=== PATIENT | male | born 1955 | race Caucasian/White ===

== ENCOUNTER → 2017-02-17 | Outpatient (CLI) | payer OTHER ==
--- NOTE | 2017-02-17 10:27 | CTL ---
EXAMINATION TYPE: CT Low Dose Lung DATE OF EXAM ORDERED: 02/17/2017 HISTORY: . Lung cancer screening CT DLP: 136.[address] CTDI: 3.5 mGy Automated exposure control for dose reduction was used. SCREENING VISIT: Initial COMPARISON: None TECHNIQUE: Low dose computed tomography scan was performed through the chest at 1 mm thick sections a nd reconstructed images in the coronal plane at [address] DIAGNOSTIC QUALITY: Satisfactory FINDINGS: LUNG NODULES: None. LUNGS: COPD: Severity: None Fibrosis: Severity: None Lymph nodes: No enlarged mediastinal or hilar adenopathy. Other findings: None RIGHT PLEURAL SPACE: Effusion: None Calcification: None Thickening: None Pneumothorax: None LEFT PLEURAL SPACE: Effusion: None Calcification: None Thickening: None Pneumothorax: None HEART: Heart Size: Normal Coronary calcification: Mild to moderate Pericardial effusion: None OTHER FINDINGS: Upper abdomen: Normal Bony thorax: Unremarkable Supraclavicular region: Normal Other: Ascending thoracic aorta at the level of the main pulmonary artery is 3.7 cm. The main pulmona ry artery the bifurcation is 3.0 cm. IMPRESSION: 1. Normal screening CT chest FOLLOW UP CT CHEST RECOMMENDATION: Follow-up per screening protocol CT LUNG RAD: Lung-Rad 1 Negative
== END | disposition home or self-care (01) ==
LOC: RADCTMAIN 08:29
PROVIDERS: ATTEND Internal Medicine
DX: Z12.2 Encounter for screening for malignant neoplasm of respiratory organs (principal); Z87.891 Personal history of nicotine dependence

== ENCOUNTER 2017-09-25 10:04 | Emergency (ER) | payer OTHER ==
[~2017-09-25 10:04] MED LIST: RABIES IMMUNE GLOB 150 UNIT/ML 10 ML VIAL IM ONE; RABIES IMMUNE GLOB 150UNIT/ML 2 ML VIAL IM ONE
[2017-09-25 10:07] VITALS: RESP 20
[2017-09-25] MEDS ORDERED: DIPH,PERTUS(ACELL)TETVAC-LF 0.5 ML VIAL IM ONE (10:42)
[2017-09-25] MEDS ORDERED: RABIES IMMUNE GLOB 150 UNIT/ML 10 ML VIAL IM ONE (10:43)
[2017-09-25] MEDS ORDERED: RABIES VACCINE (PCEC) 2.5 UNIT KIT IM ONE (10:43)
--- NOTE | 2017-09-25 10:51 | ED ---
General Adult HPI - General Chief complaint: Animal Bite Stated complaint: bite on finger Time Seen by Provider: 09/25/17 10:32 Source: patient, RN notes reviewed Mode of arrival: ambulatory Limitations: no limitations - History of Present Illness Initial comments: Patient's a 62-year-old male presented to the emergency room today with a chief complaint encounter with about this morning. Patient states he woke up this morning was about his house. He states he was able to get the back and remove it. Patient does admit there is a superficial scraping to the second MCP joint area of the right hand. He states is unsure how this happened. States concern that it could be a possible bat bite. Patient does admit that his tetanus is not up-to-date. He denies any other complaints or symptoms. Patient denies any recent fever, chills, shortness of breath, chest pain, back pain, abdominal pain , nausea or vomiting, numbness or tingling, headaches or visual changes, or any other complaints. - Related Data Allergies Allergy/AdvReac Type Severity Reaction Status Date / Time acetaminophen [From Lortab] Allergy Unknown Verified 09/25/17 10:07 hydrocodone [From Lortab] Allergy Unknown Verified 09/25/17 10:07 Review of Systems ROS Statement: Those systems with pertinent positive or pertinent negative responses have been documented in the HPI. ROS Other: All systems not noted in ROS Statement are negative. Past Medical History Past Medical History: Hyperlipidemia, Thyroid Disorder History of Any Multi-Drug Resistant Organisms: None Reported Past Surgical History: Cholecystectomy Past Psychological History: No Psychological Hx Reported Smoking Status: Current every day smoker Past Alcohol Use History: None Reported Past Drug Use History: None Reported General Exam - General Exam Comments Initial Comments: General: The patient is awake and alert, in no distress, and does not appear acutely ill. Neck: The neck is supple, there is no tenderness or JVD. Cardiovascular: There is a regular rate and rhythm. No murmur, rub or gallop is appreciated. Respiratory: Lungs are clear to auscultation, respirations are non-labored, breath sounds are equal. No wheezes, stridor, rales, or rhonchi. Musculoskeletal/skin: Patient does have superficial abrasion to 0.5 cm approximately half centimeter to the second MCP joint of the right hand. Patient has full range motion. Sensation intact. Radial pulse 2+. Strength 5/ 5. Neurological: A&O x 3. CN II-XII intact, There are no obvious motor or sensory deficits. Coordination appears grossly intact. Speech is normal. Psychiatric: Normal mood and affect. Limitations: no limitations Course Vital Signs 09/25/17 10:06 Temperature 98.1 F Pulse Rate 74 Respiratory 20 Rate Blood Pressure 152/99 O2 Sat by Pulse 100 Oximetry Medical Decision Making - Medical Decision Making 62-year-old male who found about his house this morning was able to catch it. Does have a scrape to the right hand. Was recommended to receive treatment for rabies prophylaxis. 1 mL of immunoglobulin was injected at the site of the right hand where superficial laceration/abrasions were. Patient tolerated this well. Nursing staff did administer the rest of the immunoglobulin along with rabies vaccine and his tetanus is been updated. Patient will be discharged home with a prescription to continue to receive rabies vaccine. Disposition Clinical Impression: Bite by animal Disposition: HOME SELF-CARE Condition: Stable Instructions: Animal Bite (ED) Additional Instructions: Please continue to follow-up to receive rabies vaccine as discussed. Please return here to the emergency room if any symptoms increase worsen or for any other concerns. Is patient prescribed a controlled substance at d/c from ED?: No Referrals: Kaushal Salazar MD [Primary Care Provider] - 1-2 days Time of Disposition: 12:09
[2017-09-25 12:31] VITALS: BP 126/82; PULSE 64; TEMP 97.5
== END 2017-09-25 12:31 | disposition home or self-care (01) ==
LOC: EC 10:04
DX: S61.451A Open bite of right hand, initial encounter (principal); F17.200 Nicotine dependence, unspecified, uncomplicated; Z23 Encounter for immunization; Z88.5 Allergy status to narcotic agent; Z88.8 Allergy status to other drugs, medicaments and biological substances; W64.XXXA Exposure to other animate mechanical forces, initial encounter; Y92.009 Unspecified place in unspecified non-institutional (private) residence as the place of occurrence of the external cause
CPT/HCPCS: 90375; 90471; 90472; 90675; 90715; 96372; 99283

== ENCOUNTER 2018-03-25 11:53 | Emergency (ER) | payer OTHER ==
[2018-03-25 11:59] VITALS: RESP 18
--- NOTE | 2018-03-25 12:21 | ED ---
General Adult HPI - General Chief complaint: Abdominal Pain Stated complaint: Flank pain Time Seen by Provider: 03/25/18 12:04 Source: patient Mode of arrival: ambulatory Limitations: no limitations - History of Present Illness Initial comments: Patient is a 63-year-old male with history of cholecystectomy who presents to the emergency department with complaint of right flank pain that started last night. He reports seeing his PCP earlier today and being told he has a kidney stone. He denies having an x-ray taken there; he was sent to the ER for a CT scan. He denies taking anything for pain today and states that he does not need anything right now. Patient denies any recent fever, chills, shortness of breath, chest pain, nausea or vomiting, dysuria or hematuria, constipation or diarrhea, bloody or black tarry stools, headaches or visual changes, or any other complaints. - Related Data Home Medications Medication Instructions Recorded Confirmed Atorvastatin [Lipitor] 20 mg PO DAILY 09/28/17 03/25/18 Levothyroxine Sodium 150 mcg PO DAILY 09/28/17 03/25/18 Previous Rx's Medication Instructions Recorded Tamsulosin [Flomax] 0.4 mg PO DAILY #10 cap 03/25/18 Allergies Allergy/AdvReac Type Severity Reaction Status Date / Time acetaminophen [From Lortab] Allergy Unknown Verified 03/25/18 12:22 hydrocodone [From Lortab] Allergy Unknown Verified 03/25/18 12:22 Review of Systems ROS Statement: Those systems with pertinent positive or pertinent negative responses have been documented in the HPI. ROS Other: All systems not noted in ROS Statement are negative. Past Medical History Past Medical History: Hyperlipidemia, Thyroid Disorder History of Any Multi-Drug Resistant Organisms: None Reported Past Surgical History: Cholecystectomy Past Psychological History: No Psychological Hx Reported Smoking Status: Current every day smoker Past Alcohol Use History: None Reported Past Drug Use History: None Reported General Exam Limitations: no limitations General appearance: alert, in no apparent distress Head exam: Present: atraumatic, normocephalic Eye exam: Present: normal appearance Respiratory exam: Present: normal lung sounds bilaterally. Absent: wheezes, rales, rhonchi Cardiovascular Exam: Present: regular rate, normal rhythm GI/Abdominal exam: Present: soft, normal bowel sounds. Absent: distended, tenderness Back exam: Absent: CVA tenderness (R), CVA tenderness (L) Neurological exam: Present: alert, oriented X3 Course Vital Signs 03/25/18 03/25/18 11:57 14:25 Temperature 97.5 F L 97.8 F Pulse Rate 75 54 L Respiratory 18 18 Rate Blood Pressure 126/85 122/76 O2 Sat by Pulse 99 96 Oximetry Medical Decision Making - Medical Decision Making CT abdomen and pelvis reveals a 5 mm calculus lower pole level left kidney. Round 2 mm calculus at UVJ causing mild right-sided hydronephrosis. Patient states he was already prescribed pain medication by his PCP. Will prescribe Flomax. Patient instructed to increase fluid intake. Case discussed in detail with attending physician Dr. Avalos. - Lab Data Result diagrams: 03/25/18 13:06 03/25/18 13:06 Lab Results 03/25/18 03/25/18 03/25/18 Range/Units 13:06 13:06 13:06 WBC 8.6 (3.8-10.6) k/uL RBC 5.01 (4.30-5.90) m/uL Hgb 14.8 (13.0-17.5) gm/dL Hct 43.9 (39.0-53.0) % MCV 87.7 (80.0-100.0) fL MCH 29.5 (25.0-35.0) pg MCHC 33.6 (31.0-37.0) g/dL RDW 13.0 (11.5-15.5) % Plt Count 175 (150-450) k/uL Neutrophils % 69 % Lymphocytes % 18 % Monocytes % 7 % Eosinophils % 3 % Basophils % 1 % Neutrophils # 6.0 (1.3-7.7) k/uL Lymphocytes # 1.5 (1.0-4.8) k/uL Monocytes # 0.6 (0-1.0) k/uL Eosinophils # 0.2 (0-0.7) k/uL Basophils # 0.1 (0-0.2) k/uL Sodium 141 (137-145) mmol/L Potassium 4.6 (3.5-5.1) mmol/L Chloride 111 H (98-107) mmol/L Carbon Dioxide 24 (22-30) mmol/L Anion Gap 6 mmol/L BUN 22 H (9-20) mg/dL Creatinine 1.00 (0.66-1.25) mg/dL Est GFR (CKD-EPI)AfAm >90 (>60 ml/min/1.73 sqM) Est GFR (CKD-EPI)NonAf 79 (>60 ml/min/1.73 sqM) Glucose 97 (74-99) mg/dL Plasma Lactic Acid Sebastian 0.9 (0.7-2.0) mmol/L Calcium 9.9 (8.4-10.2) mg/dL Total Bilirubin 0.6 (0.2-1.3) mg/dL AST 26 (17-59) U/L ALT 40 (21-72) U/L Alkaline Phosphatase 50 (38-126) U/L Total Protein 6.7 (6.3-8.2) g/dL Albumin 4.1 (3.5-5.0) g/dL Lipase 132 (23-300) U/L Urine Color Urine Appearance (Clear) Urine pH (5.0-8.0) Ur Specific [place] (1.001-1.035) Urine Protein (Negative) Urine Glucose (UA) (Negative) Urine Ketones (Negative) Urine Blood (Negative) Urine Nitrite (Negative) Urine Bilirubin (Negative) Urine Urobilinogen (<2.0) mg/dL Ur Leukocyte Esterase (Negative) Urine RBC (0-5) /hpf Urine WBC (0-5) /hpf Urine Mucus (None) /hpf 03/25/18 Range/Units 13:06 WBC (3.8-10.6) k/uL RBC (4.30-5.90) m/uL Hgb (13.0-17.5) gm/dL Hct (39.0-53.0) % MCV (80.0-100.0) fL MCH (25.0-35.0) pg MCHC (31.0-37.0) g/dL RDW (11.5-15.5) % Plt Count (150-450) k/uL Neutrophils % % Lymphocytes % % Monocytes % % Eosinophils % % Basophils % % Neutrophils # (1.3-7.7) k/uL Lymphocytes # (1.0-4.8) k/uL Monocytes # (0-1.0) k/uL Eosinophils # (0-0.7) k/uL Basophils # (0-0.2) k/uL Sodium (137-145) mmol/L Potassium (3.5-5.1) mmol/L Chloride (98-107) mmol/L Carbon Dioxide (22-30) mmol/L Anion Gap mmol/L BUN (9-20) mg/dL Creatinine (0.66-1.25) mg/dL Est GFR (CKD-EPI)AfAm (>60 ml/min/1.73 sqM) Est GFR (CKD-EPI)NonAf (>60 ml/min/1.73 sqM) Glucose (74-99) mg/dL Plasma Lactic Acid Sebastian (0.7-2.0) mmol/L Calcium (8.4-10.2) mg/dL Total Bilirubin (0.2-1.3) mg/dL AST (17-59) U/L ALT (21-72) U/L Alkaline Phosphatase (38-126) U/L Total Protein (6.3-8.2) g/dL Albumin (3.5-5.0) g/dL Lipase (23-300) U/L Urine Color Yellow Urine Appearance Clear (Clear) Urine pH 5.0 (5.0-8.0) Ur Specific [place] 1.016 (1.001-1.035) Urine Protein Negative (Negative) Urine Glucose (UA) Negative (Negative) Urine Ketones Negative (Negative) Urine Blood Small H (Negative) Urine Nitrite Negative (Negative) Urine Bilirubin Negative (Negative) Urine Urobilinogen <2.0 (<2.0) mg/dL Ur Leukocyte Esterase Negative (Negative) Urine RBC 14 H (0-5) /hpf Urine WBC 1 (0-5) /hpf Urine Mucus Rare H (None) /hpf Disposition Clinical Impression: Kidney stones Disposition: HOME SELF-CARE Condition: Good Instructions (If sedation given, give patient instructions): Kidney Stones (ED) Additional Instructions: Follow-up with your PCP in 1 to 2 days. Return to the emergency department if your symptoms worsen or other concerns. Prescriptions: Tamsulosin [Flomax] 0.4 mg PO DAILY #10 cap Is patient prescribed a controlled substance at d/c from ED?: No Referrals: Kaushal Salazar MD [Primary Care Provider] - 1-2 days Time of Disposition: 14:14
[2018-03-25] MEDS ORDERED: SODIUM CHLORIDE 0.9% 1,000 ML IV SCH (12:30)
--- NOTE | 2018-03-25 13:01 | CT ---
EXAMINATION TYPE: CT abdomen pelvis wo con DATE OF EXAM: 03/25/2018 HISTORY: Right flank pain CT DLP: 763.5 mGycm. Automated Exposure Control for Dose Reduction was Utilized. TECHNIQUE: CT scan of the abdomen and pelvis is performed without oral or IV contrast. COMPARISON: NONE FINDINGS: Within the limitations of a non-contrast study, the following observations are made. LUNG BASES: Coronary artery calcification RCA distribution is seen which is noted marker for underlyi ng coronary artery disease. LIVER/GB: Cholecystectomy clips are present. PANCREAS: No significant abnormality is seen. SPLEEN:. Tiny splenules in inferior splenic hilum are noted. ADRENALS: No significant abnormality is seen. KIDNEYS: There is 5 mm calculus lower pole level left kidney coronal image 56. There is round 2 mm ca lculus at UVJ axial image 129 causing mild right-sided hydronephrosis. No left-sided obstructing calc sean or hydronephrosis is present. BOWEL: Normal-appearing appendix is seen from cecum. There is no suspicious small or large bowel dil atation. Sigmoid colonic diverticula are present without CT evidence for acute diverticulitis. GENITAL ORGANS: Prostate gland is enlarged in size bulging on bladder base consistent with BPH. LYMPH NODES: No greater than 1cm abdominal or pelvic lymph nodes are appreciated. OSSEOUS STRUCTURES: No significant abnormality is seen. OTHER: There is small fat-containing right inguinal hernia. There is mild/moderate calcified plaque o f aorta extending into branch vessels IMPRESSION: 1. There is 2 mm calculus at right UVJ causing mild right-sided hydronephrosis
[2018-03-25 13:39] LABS: Basophils # (A) 0.1 k/uL (0-0.2); Basophils % (A) 1 %; Eosinophils # (A) 0.2 k/uL (0-0.7); Eosinophils % (A) 3 %; HCT 43.9 % (39.0-53.0); HGB 14.8 gm/dL (13.0-17.5); Lymphocytes # (A) 1.5 k/uL (1.0-4.8); Lymphocytes % (A) 18 %; MCH 29.5 pg (25.0-35.0); MCHC 33.6 g/dL (31.0-37.0); MCV 87.7 fL (80.0-100.0); Mean Platelet Volume 7.5; Monocytes # (A) 0.6 k/uL (0-1.0); Monocytes % (A) 7 %; Neutrophils % (A) 69 %; Platelet Count 175 k/uL (150-450); RBC 5.01 m/uL (4.30-5.90); WBC 8.6 k/uL (3.8-10.6)
[2018-03-25 13:43] LABS: Appearance,Urine Clear (Clear); Bilirubin,Urine Negative (Negative); Blood,Urine Small (Negative); Color,Urine Yellow; Glucose,Urine (UA) Negative (Negative); Ketones,Urine Negative (Negative); Leukocyte Esterase,Urine Negative (Negative); Mucus,Urine Rare /hpf; Nitrite,Urine Negative (Negative); Protein,Urine Negative (Negative); RBC,Urine 14 /hpf (0-5); Specific Gravity,Urine 1.016 (1.001-1.035); Urobilinogen,Urine <2.0 mg/dL (<2.0); WBC,Urine 1 /hpf (0-5)
[2018-03-25 13:46] LABS: ALT 40 U/L (21-72); AST 26 U/L (17-59); Albumin 4.1 g/dL (3.5-5.0); Alkaline Phosphatase 50 U/L (38-126); Anion Gap 6 mmol/L; Blood Urea Nitrogen 22 mg/dL (9-20); Calcium 9.9 mg/dL (8.4-10.2); Carbon Dioxide 24 mmol/L (22-30); Chloride 111 mmol/L (98-107); Glucose 97 mg/dL (74-99); Lipase 132 U/L (23-300); Potassium 4.6 mmol/L (3.5-5.1); Sodium 141 mmol/L (137-145); Total Bilirubin 0.6 mg/dL (0.2-1.3); Total Protein 6.7 g/dL (6.3-8.2)
[2018-03-25 14:28] VITALS: BP 122/76; PULSE 54; TEMP 97.8
== END 2018-03-25 14:25 | disposition home or self-care (01) ==
LOC: EC 11:53
DX: N13.2 Hydronephrosis with renal and ureteral calculous obstruction (principal); E78.5 Hyperlipidemia, unspecified; E07.9 Disorder of thyroid, unspecified; F17.200 Nicotine dependence, unspecified, uncomplicated; Z79.899 Other long term (current) drug therapy; Z79.890 Hormone replacement therapy; Z88.5 Allergy status to narcotic agent; Z88.6 Allergy status to analgesic agent; Z90.49 Acquired absence of other specified parts of digestive tract
CPT/HCPCS: 36415; 74176; 80053; 81001; 83605; 83690; 85025; 96360; 99284

== ENCOUNTER → 2018-04-14 | Outpatient (CLI) | payer OTHER ==
--- NOTE | 2018-04-14 19:28 | CTL ---
EXAMINATION TYPE: CT Low Dose Lung DATE OF EXAM ORDERED: 04/14/2018 HISTORY: . Lung cancer screening CT DLP: mGycm CT CTDI: mGy Automated exposure control for dose reduction was used. SCREENING VISIT: Subsequent, second COMPARISON: 02/17/2017 TECHNIQUE: Low dose computed tomography scan was performed through the chest at 1 mm thick sections a nd reconstructed images in the coronal plane at [address] DIAGNOSTIC QUALITY: Satisfactory FINDINGS: LUNG NODULES: Present, detailed below: There is a 0.2 cm nodule which may be within the segmental fissure adjacent to the pleural margin of the right upper lobe. Series 4 image 132. In retrospect this may have been present previously. LUNGS: COPD: Severity: None Fibrosis: Severity: None Lymph nodes: None Other findings: None RIGHT PLEURAL SPACE: Effusion: None Calcification: None Thickening: None Pneumothorax: None LEFT PLEURAL SPACE: Effusion: None Calcification: Tiny calcification along the posterior medial lower margin. Series 4 image 218 Thickening: None Pneumothorax: None HEART: Heart Size: Normal Coronary calcification: None Pericardial effusion: None OTHER FINDINGS: Upper abdomen: Normal Bony thorax: Normal Supraclavicular region: Normal Other: The ascending thoracic aorta at the level of main pulmonary artery is 4.0 cm. The main pulmona ry artery the bifurcation is 2.8 cm. IMPRESSION: 1. No suspicious changes to suggest neoplasm. 2. Ascending thoracic aortic aneurysm measuring 4.0 cm on the current exam. This was previously 3.7 c m. Management and observation of this finding is separate from the low-dose CT screening. FOLLOW UP CT CHEST RECOMMENDATION: Low-dose CT chest per screening protocol. Additional Recommendations: Monitoring for ascending thoracic aortic aneurysm currently measuring 4.[address] LUNG RAD: Lung rad 2
== END ==
LOC: RADCTMAIN 17:28
PROVIDERS: ATTEND Internal Medicine
DX: I71.2 Thoracic aortic aneurysm, without rupture (principal); Z87.891 Personal history of nicotine dependence

== ENCOUNTER → 2018-08-17 | Outpatient (CLI) | payer OTHER ==
--- NOTE | 2018-10-07 10:12 | ECHOF ---
Referral Reason:I25.3 aneurysm of heart MEASUREMENTS -------- HEIGHT: 185.4 cm WEIGHT: 97.5 kg BP: 134/76 RVIDd: 3.7 cm (< 3.3) IVSd: 1.4 cm (0.6 - 1.1) LVIDd: 4.1 cm (3.9 - 5.3) LVPWd: 1.4 cm (0.6 - 1.1) IVSs: 1.8 cm LVIDs: 3.2 cm LVPWs: 1.7 cm LA Diam: 3.0 cm (2.7 - 3.8) LAESV Index (A-L): 19.32 ml/m Ao Diam: 4.2 cm (2.0 - 3.7) AV Cusp: 2.3 cm (1.5 - 2.6) MV EXCURSION: 13.666 mm (> 18.000) MV EF SLOPE: 57 mm/s (70 - 150) EPSS: 0.8 cm MV E Rigoberto: 0.62 m/s MV DecT: 348 ms MV A Rigoberto: 0.70 m/s MV E/A Ratio: 0.88 FINDINGS -------- Sinus rhythm. This was a technically good study. The left ventricular size is normal. There is moderate concentric left ventricular hypertrophy. O verall left ventricular systolic function is normal with, an EF between 60 - 65 %. The right ventricle is mildly enlarged. Normal LA size by volume 22+/-6 ml/m2. The right atrium is normal in size. Interatrial and interventricular septum intact. Aortic valve is trileaflet and is mildly thickened. The mitral valve is normal. The tricuspid valve appears structurally normal. Trace/mild (physiologic) pulmonic regurgitation. The aortic root is dilated measuring 4.2cm. Normal inferior vena cava with normal inspiratory collapse consistent with estimated right atrial pre ssure of 5 mmHg. There is no pericardial effusion. CONCLUSIONS -------- 1. Sinus rhythm. 2. This was a technically good study. 3. The left ventricular size is normal. 4. There is moderate concentric left ventricular hypertrophy. 5. Overall left ventricular systolic function is normal with, an EF between 60 - 65 %. 6. The right ventricle is mildly enlarged. 7. Normal LA size by volume 22+/-6 ml/m2. 8. The right atrium is normal in size. 9. Interatrial and interventricular septum intact. 10. Aortic valve is trileaflet and is mildly thickened. 11. The mitral valve is normal. 12. The tricuspid valve appears structurally normal. 13. Trace/mild (physiologic) pulmonic regurgitation. 14. The aortic root is dilated measuring 4.2cm. 15. Normal inferior vena cava with normal inspiratory collapse consistent with estimated right atrial pressure of 5 mmHg. 16. Asked to read this echo on oct 07.. FITTING ROOM ASSOCIATE: Berkley Scott RDCS
== END | disposition home or self-care (01) ==
LOC: RADECHMAIN 10:40
PROVIDERS: ATTEND Internal Medicine
DX: I37.1 Nonrheumatic pulmonary valve insufficiency (principal)
CPT/HCPCS: 93306

== ENCOUNTER → 2019-04-15 | Outpatient (CLI) | payer MEDICARE ==
--- NOTE | 2019-04-15 18:58 | CTL ---
EXAMINATION TYPE: CT Low Dose Lung DATE OF EXAM ORDERED: 04/15/2019 HISTORY: Recently use of tobacco. Lung cancer screening CT DLP: 139.[address] CTDI: 3.4 mGy Automated exposure control for dose reduction was used. SCREENING VISIT: Subsequent COMPARISON: 04/14/2018 TECHNIQUE: Low dose computed tomography scan was performed through the chest at 1 mm thick sections a nd reconstructed images in the coronal plane at [address] DIAGNOSTIC QUALITY: Satisfactory FINDINGS: LUNG NODULES: None. There is a 0.3 cm faint density at the periphery of the right apex. Series 4 image 59. This in retros pect may have been present previously. The small density in the periphery of the right middle lung is stable a 0.2 cm. Series 4 image 131. LUNGS: COPD: Severity: None Fibrosis: Severity: None Lymph nodes: None Other findings: None RIGHT PLEURAL SPACE: Effusion: None Calcification: None Thickening: None Pneumothorax: None LEFT PLEURAL SPACE: Effusion: None Calcification: None Thickening: None Pneumothorax: None HEART: Heart Size: Normal Coronary calcification: Mild Pericardial effusion: None OTHER FINDINGS: Upper abdomen: Normal Bony thorax: Normal Supraclavicular region: Normal Other: Ascending thoracic aorta at the level the main pulmonary artery measures 3.7 cm. The main pul monary artery at the bifurcation measures 2.8 cm. IMPRESSION: 1. Benign findings FOLLOW UP CT CHEST RECOMMENDATION: Yes annual low dose screening CT chest CT LUNG RAD: 2
== END | disposition home or self-care (01) ==
LOC: RADCTMAIN 07:55
PROVIDERS: ATTEND Internal Medicine
DX: Z12.2 Encounter for screening for malignant neoplasm of respiratory organs (principal); Z87.891 Personal history of nicotine dependence

== ENCOUNTER → 2019-11-16 | Outpatient (CLI) | payer MEDICARE ==
--- NOTE | 2019-11-16 10:17 | CT ---
EXAMINATION TYPE: CT cervical spine wo con DATE OF EXAM: 11/16/2019 COMPARISON: None HISTORY: Pain CT DLP: 515.6 mGycm CONTRAST: None CT of the cervical spine is performed in the axial plane at 2 mm thick sections. Reconstructed image s in the coronal, and sagittal plane are reviewed on the computer. No acute fractures are evident. Vertebral body alignment is normal. Disc heights are preserved. Vertebral body heights are preserved. No spinal canal stenosis is evident Foraminal narrowing due to facet hypertrophy and uncovertebral joint hypertrophy is present on the le ft at C2-3, left C3-4, left C4-5, left C5-6. There is loss of disc height C6-7 and mild narrowing at C7-T1. IMPRESSIONS: 1. Degenerative changes of the uncovertebral joints and facets on the left with foraminal narrowing . 2. Degenerative disc disease with loss of disc height C6-7
--- NOTE | 2019-11-16 12:44 | CT ---
EXAMINATION TYPE: CT thoracic spine wo con DATE OF EXAM: 11/16/2019 COMPARISON: None HISTORY: Pain CT DLP: 1668.9 mGycm Automated exposure control for dose reduction was used. Axial images at 3 mm thick sections. Reconstructed images in the coronal and sagittal planes. FINDINGS: Vertebral body heights are preserved. Disc heights appear preserved. Some vacuum disc phenomenon is i n the lower disc levels. IMPRESSION: NO ACUTE OSSEOUS ABNORMALITY
== END | disposition home or self-care (01) ==
LOC: RADCTMAIN 06:57
PROVIDERS: ATTEND Orthopaedic Surgery
DX: M48.02 Spinal stenosis, cervical region (principal); M50.323 Other cervical disc degeneration at C6-C7 level; M47.812 Spondylosis without myelopathy or radiculopathy, cervical region; M54.6 Pain in thoracic spine; Z88.8 Allergy status to other drugs, medicaments and biological substances
CPT/HCPCS: 72125; 72128

== ENCOUNTER → 2019-11-28 | Outpatient (CLI) | payer MEDICARE ==
--- NOTE | 2019-11-28 12:46 | MR ---
EXAMINATION TYPE: MR cervical spine wo con DATE OF EXAM: 11/28/2019 12:26 PM COMPARISON: NONE HISTORY: NECK PAIN Multiplanar MultiSpin echo imaging of the cervical spine was performed. C2-C3: No evidence for degenerative disc disease. No disc bulge/herniation or protrusion. No Canal stenosis. Foramina are patent bilaterally. C3-C4: No evidence for degenerative disc disease. No disc bulge/herniation or protrusion. No Canal stenosis. Foramina are patent bilaterally. C4-C5: Mild degenerative disc disease noted. Left paracentral disc bulge with effacement ventral thec al sac and left lateral recess stenosis. Left foraminal encroachment noted. C5-C6: Mild disc desiccation. Posterior disc bulge with effacement of the ventral thecal sac. No evid ence of central stenosis or disc herniation. Mild hypertrophic change of the cervical apophyseal join ts resulting in right foraminal encroachment. C6-C7: Mild disc desiccation. Posterior disc bulge with effacement of the ventral thecal sac. No evid ence of central stenosis or disc herniation. Mild hypertrophic change of the cervical apophyseal join ts resulting in right foraminal encroachment. C7-T1: Mild disc desiccation. Left paracentral focal disc herniation effaces the ventral thecal sac w ithout cord contact or central stenosis. Cervical segments are intact. There is normal alignment. Cervical spinal cord is of normal signal. Craniovertebral junction relationships are within normal limits. IMPRESSION: 1. Multilevel degenerative disc disease multilevel disc bulging. C7-T1 left paracentral focal disc he rniation. See above.
== END | disposition home or self-care (01) ==
LOC: RADMRIMAIN 11:14
PROVIDERS: ATTEND Orthopaedic Surgery
DX: M48.02 Spinal stenosis, cervical region (principal); M50.221 Other cervical disc displacement at C4-C5 level; M50.321 Other cervical disc degeneration at C4-C5 level
CPT/HCPCS: 72141

== ENCOUNTER 2020-04-16 11:20 | Day surgery (SDC) | payer MEDICARE ==
[2020-04-11 11:32] VITALS: BMI 27.4
[~2020-04-16 11:20] MED LIST changes: +LACTATED RINGERS 1,000 ML IV SCH; -RABIES IMMUNE GLOB 150 UNIT/ML 10 ML VIAL IM ONE; -RABIES IMMUNE GLOB 150UNIT/ML 2 ML VIAL IM ONE
[2020-04-16] MEDS ORDERED: LIDOCAINE 1% (10MG/ML) FOR IV START INTRADERMA ONE (11:49)
[2020-04-16 11:52] VITALS: TEMP 98.1
[2020-04-16] MEDS ORDERED: DEXAMETHASONE SOD PHOSPHATE 10 MG/ML 1 ML VIAL ONE (12:12)
[2020-04-16] MEDS ORDERED: MIDAZOLAM 2 MG/2 ML VIAL ONE (12:12)
[2020-04-16] MEDS ORDERED: IOPAMIDOL M200 10 ML VIAL ONE (12:12)
[2020-04-16] MEDS ORDERED: fentaNYL (PF) 50 MCG/ML 2 ML AMP ONE (12:12)
[2020-04-16] MEDS ORDERED: IV FLUID CONTINUATION 1,000 ML IV ONE (12:37)
[2020-04-16 12:40] VITALS: RESP 18
[2020-04-16 12:49] VITALS: BP 134/79; PULSE 59
--- NOTE | 2020-04-16 13:19 | FL ---
Fluoroscopy INDICATION: Pain FINDINGS: Fluoroscopy time: 15 seconds. Images obtained: 2. IMPRESSIONS: 1. Documentation of fluoroscopy.
--- NOTE | 2020-04-16 16:45 | P.PCN ---
Date of Procedure: 04/16/20 Procedure(s) Performed: PREOPERATIVE DIAGNOSIS: 1-Cervical radiculopathy . 2-cervical foraminal stenosis. 3-cervical spondylosis POSTOPERATIVE DIAGNOSIS: Same as preoperative diagnoses. PROCEDURE 1. Transforaminal epidural steroid injection under fluoroscopic guidance at left C4-5 level. (Fluoroscopy images stored on file in the radiology Department ) ANESTHESIA: Local with 1% lidocaine 3 ml , moderate sedation with intravenous Versed 2 mg and fentanyle 50 micrograms. EBL: Minimal PROCEDURE INDICATION: The patient with severe neck pain and radiculopathy to the upper extremity , the symptoms unresponsive to conservative treatment. PROCEDURE DESCRIPTION / TECHNIQUE: The patient was seen and identified in the preoperative area. Risks, benefits, complications, and alternatives were discussed with the patient. The patient agreed to proceed with the procedure and signed the consent. IV was started, and vital signs were stable. Patient was taken to the OR and time out was completed. The patient was placed in the prone position on procedure table and a pillow was placed under the abdomen to reduce lumbar lordosis. The cervical area was prepped and draped in the usual sterile fashion. Critical pause was taken. Vital signs were closely monitored during the procedure. Conscious sedation was used during the procedure to decrease patient s anxiety. Using oblique fluoroscopy, the Left C4-5 level was identified, in the lateral view , the skin and deeper tissues just below was localized with 1% lidocaine. Subsequently, a 22-gauge 3.5-inch spinal needle was advanced under a tunneled view fluoroscopic guidance just underneath the foraminotomy of at the left C4-5 Under lateral fluoroscopy, the needle was then advanced to the posterior border of the interforaminal space. Needle placement confirmed with AP and lateral view , then After negative aspiration of CSF and blood and with no paresthesias, 1 mL Isovue 200 contrast dye was injected excellent epidurogram , 2 mL of block solution containing 20 mg Dexamethasone and 1 mL of 0.9% normal saline PF was injected. Needle was removed. At the end of the procedure, skin was cleansed, and bandages were applied. COMPLICATIONS:none DISPOSITION / PLANS: The patient was placed in a supine position and transferred to the recovery area in a stable condition for observation. There was no evidence of lower extremity motor or sensory deficit after the procedure. Patient was discharged from the recovery room after meeting discharge criteria. Home discharge instructions were given to the patient by the staff. The patient was reexamined prior to discharge.
== END 2020-04-16 13:03 | disposition home or self-care (01) ==
LOC: ORPAIN 11:20
PROVIDERS: ATTEND Specialist
DX: M47.22 Other spondylosis with radiculopathy, cervical region (principal); M48.02 Spinal stenosis, cervical region; Z88.5 Allergy status to narcotic agent; Z79.82 Long term (current) use of aspirin
CPT/HCPCS: 64479; J2250; J1100; J3010; Q9966; 64483; 99152

== ENCOUNTER → 2020-04-22 | Outpatient (CLI) | payer MEDICARE ==
--- NOTE | 2020-04-22 09:22 | CTL ---
EXAMINATION TYPE: CT Low Dose Lung DATE OF EXAM ORDERED: 04/22/2020 HISTORY: Long-term tobacco use. Lung cancer screening CT DLP: 121.[address] CTDI: 3.0 mGy Automated exposure control for dose reduction was used. SCREENING VISIT: Third after baseline COMPARISON: Prior study April 15, 2019 and older studies TECHNIQUE: Low dose computed tomography scan was performed through the chest at 1 mm thick sections a nd reconstructed images in the coronal plane at [address] DIAGNOSTIC QUALITY: Satisfactory FINDINGS: LUNG NODULES: Present, detailed below: Some scattered micronodules for reference a 3 mm right upper l obe nodule axial image 52 and 2 to 3 mm right upper lobe nodule axial image 67 unchanged from prior s tudies. LUNGS: COPD: Severity: None Fibrosis: Severity: None Lymph nodes: None Other findings: None RIGHT PLEURAL SPACE: Effusion: None Calcification: None Thickening: None Pneumothorax: None LEFT PLEURAL SPACE: Effusion: None Calcification: None Thickening: None Pneumothorax: None HEART: Heart Size: Normal Coronary calcification: Moderate three-vessel Pericardial effusion: None OTHER FINDINGS: Upper abdomen: Cholecystectomy clips. Bony thorax: None. Supraclavicular region: None Other: Ascending aorta measures up to 3.6 cm in diameter unchanged from prior. IMPRESSION: No new or enlarging nodules. CT LUNG RAD AND CT CHEST RECOMMENDATION: Lung-Rad 2 Benign Appearance or Behavior: Continue annual sc reening with LDCT in 12 months. S Modifier (other clinically significant findings): None
== END | disposition home or self-care (01) ==
LOC: RADCTMAIN 08:30
PROVIDERS: ATTEND Family Medicine
DX: Z12.2 Encounter for screening for malignant neoplasm of respiratory organs (principal); Z87.891 Personal history of nicotine dependence
CPT/HCPCS: 71271

== ENCOUNTER → 2020-05-27 | Outpatient (CLI) | payer MEDICARE ==
--- NOTE | 2020-05-27 09:24 | CT ---
EXAMINATION TYPE: CT abdomen pelvis wo con DATE OF EXAM: 05/27/2020 COMPARISON: 03/25/2018 HISTORY: 65-year-old male N20.0, Calculus of kidney CT DLP: 993 mGycm. Automated exposure control for dose reduction was used. TECHNIQUE: Contiguous axial scanning of the abdomen and pelvis without IV contrast. Coronal and sagit sheila reconstructions performed. FINDINGS: Heart normal size without pericardial effusion. RCA coronary artery calcifications are present. Lung bases clear without pleural effusion. Noncontrast appearance of the liver, adrenal glands, spleen with a couple tiny hilar splenules, and p ancreas show no gross abnormality by noncontrast CT. Unchanged 1.4 cm cortical hypodensity medial right kidney, likely benign cyst. There is mild left-sided pelvocaliectasis with a 9 mm calculus dependent in the left renal collecting system. No dilated small bowel, free fluid, or free air. No mesenteric or retroperitoneal lymphadenopathy. Normal appendix. Moderate stool burden. Sigmoid diverticulosis. No pericolonic inflammatory change. Short segment annular thickening at the descending and sigmoid colon, axial image 57 and sagittal beata ge 62 could reflect focal peristalsis. Mild atherosclerotic calcifications infrarenal abdominal aorta. Bladder partially distended. Prostate gland measures 6.1 cm wide eccentric calcifications. No abnorma l fluid collection in the pelvis or pelvic lymphadenopathy. Bones: Mild to moderate degenerative change of the hips. Facet arthropathy lower lumbar spine. IMPRESSION: 1. Mild left-sided pelvicaliectasis with a 9 mm calculus dependent in the renal collecting system. D epending on patient positioning, this may become intermittently obstructive if it moves to the UPJ le ovi. 2. Moderate stool burden. Sigmoid diverticulosis. There is short segment annular thickening at the j unction of the descending and sigmoid colon that could represent focal peristalsis. Direct visualizat ion recommended to exclude neoplasm if routine screening colonoscopy is not being performed. 3. Prostatomegaly at 6.1 cm wide.
== END | disposition home or self-care (01) ==
LOC: RADCTMAIN 08:25
PROVIDERS: ATTEND Urology
DX: N20.0 Calculus of kidney (principal); N40.0 Benign prostatic hyperplasia without lower urinary tract symptoms; K57.30 Diverticulosis of large intestine without perforation or abscess without bleeding
CPT/HCPCS: 74176

== ENCOUNTER → 2020-12-25 | Outpatient (CLI) | payer MEDICARE ==
[2020-12-25 11:49] LABS: Basophils # (A) 0.1 k/uL (0-0.2); Basophils % (A) 1 %; Eosinophils # (A) 0.1 k/uL (0-0.7); Eosinophils % (A) 3 %; HCT 45.7 % (39.0-53.0); HGB 15.1 gm/dL (13.0-17.5); Lymphocytes # (A) 1.6 k/uL (1.0-4.8); Lymphocytes % (A) 30 %; MCH 30.5 pg (25.0-35.0); MCHC 33.1 g/dL (31.0-37.0); Mean Platelet Volume 8.2; Monocytes # (A) 0.5 k/uL (0-1.0); Monocytes % (A) 9 %; Neutrophils # (A) 2.8 k/uL (1.3-7.7); Neutrophils % (A) 54 %; Platelet Count 165 k/uL (150-450); RBC 4.96 m/uL (4.30-5.90); RDW 12.7 % (11.5-15.5); WBC 5.3 k/uL (3.8-10.6)
[2020-12-25 11:58] LABS: African American GFR (CKD) >90 (>60 ml/min/1.73 sqM); Anion Gap 8 mmol/L; Blood Urea Nitrogen 17 mg/dL (9-20); Calcium 9.8 mg/dL (8.4-10.2); Carbon Dioxide 26 mmol/L (22-30); Chloride 106 mmol/L (98-107); Glucose 97 mg/dL (74-99); Non-African American GFR(CKD) >90 (>60 ml/min/1.73 sqM); Potassium 4.4 mmol/L (3.5-5.1); Sodium 140 mmol/L (137-145)
== END | disposition home or self-care (01) ==
LOC: LABPAT 10:16
PROVIDERS: ATTEND Urology
DX: Z01.812 Encounter for preprocedural laboratory examination (principal); N20.0 Calculus of kidney
CPT/HCPCS: 36415; 80048; 85025

== ENCOUNTER 2021-01-02 05:53 | Day surgery (SDC) | payer MEDICARE ==
--- NOTE | 2020-12-30 09:45 | P.GSHP ---
History of Present Illness H&P Date: 12/30/20 Chief Complaint: Left hydronephrosis The patient is a 65-year-old white male with an elevated PSA level. He underwent a prostate ultrasound with biopsies in June 2020. The prostate volume was 37 mL, and biopsies showed no evidence of malignancy. A computed tomography scan showed mild left pyelocaliectasis due to a 9 mm left renal pelvic calculus. Urine cytology shows rare atypical cells. The patient denies flank pain, but has elected to undergo treatment for his renal calculus. He was offered the options of ESWL versus ureteroscopy with laser lithotripsy. The pros and cons of each were reviewed in detail, and he has elected to undergo the latter. - Genitourinary (Male) Genitourinary: Reports kidney stones, Denies dysuria, Denies flank pain, Denies hematuria Past Medical History Past Medical History: Hyperlipidemia, Thyroid Disorder History of Any Multi-Drug Resistant Organisms: None Reported Past Surgical History: Cholecystectomy, Orthopedic Surgery Additional Past Surgical History / Comment(s): SCOPE TO KNEE, BONE SPUR TO FOOT, COLONOSCOPY, Past Anesthesia/Blood Transfusion Reactions: No Reported Reaction Smoking Status: Former smoker - Past Family History Brother(s) Family Medical History: Cancer Medications and Allergies Home Medications Medication Instructions Recorded Confirmed Type Atorvastatin [Lipitor] 20 mg PO DAILY 09/28/17 04/16/20 History Levothyroxine Sodium 150 mcg PO DAILY 09/28/17 04/16/20 History Ibuprofen [Motrin Ib] 200 mg PO Q8H PRN 04/11/20 04/16/20 History Allergies Allergy/AdvReac Type Severity Reaction Status Date / Time hydrocodone [From Lortab] Allergy Unknown Verified 04/16/20 11:31 Surgical - Exam - General well developed, well nourished, no distress - Respiratory normal respiratory effort - Abdomen Abdomen: soft, non tender, no guarding, no rigid, no rebound Hernia: inguinal - Genitourinary normal penis with no external lesions, testicles non-tender - Rectum Rectum: normal sphincter tone, no masses, other (Prostate mildly enlarged left- sided asymmetry) - Psychiatric oriented to time, oriented to person, oriented to place, speech is normal, memory intact Results - Imaging CT scan - abdomen: report reviewed, image reviewed Assessment and Plan (1) Calculus of kidney Status: Acute Code(s): N20.0 - CALCULUS OF KIDNEY SNOMED Code(s): 99641609 Plan: Cystoscopy, left retrograde pyelogram, left ureteroscopy with Holmium laser lithotripsy and possible stone basketing, left ureteral stent insertion. The procedure has been reviewed in detail with the patient. The anticipated course was reviewed, as were potential risks which include anesthesia, bleeding, infection, and ureteral injury. The possible need for secondary treatment has been discussed.
[2020-12-31 15:23] VITALS: BMI 27.7
[2021-01-02] MEDS ORDERED: LACTATED RINGERS 1,000 ML IV SCH (06:01)
[2021-01-02] MEDS ORDERED: LIDOCAINE 1% (10MG/ML) FOR IV START INTRADERMA PRN (06:01)
[2021-01-02 06:50] VITALS: RESP 16
[2021-01-02] MEDS ORDERED: ONDANSETRON 4 MG/2 ML VIAL ONE ×2 (06:56→12:05)
[2021-01-02] MEDS ORDERED: ONDANSETRON 4 MG/2 ML VIAL IVP ONE (06:57)
[2021-01-02] MEDS ORDERED: LIDOCAINE 1% INJ 10MG/ML (20 ML MDV) ONE (07:41)
[2021-01-02] MEDS ORDERED: ROCURONIUM 10 MG/ML (5 ML VIAL) IV ONE (07:41)
[2021-01-02] MEDS ORDERED: fentaNYL (PF) 50 MCG/ML 2 ML AMP ONE (07:41)
[2021-01-02] MEDS ORDERED: NEOSTIGMINE 1 MG/ML 10 ML VIAL ONE (07:41)
[2021-01-02] MEDS ORDERED: MIDAZOLAM 2 MG/2 ML VIAL ONE (07:41)
[2021-01-02] MEDS ORDERED: SUCCINYLCHOLINE CHLORIDE 100 MG/5 ML SYR IV ONE (07:41)
[2021-01-02] MEDS ORDERED: GLYCOPYRROLATE 0.2 MG/ML 2 ML VIAL ONE (07:41)
[2021-01-02] MEDS ORDERED: PROPOFOL 10 MG/ML 20 ML VIAL IV ONE (07:41)
--- NOTE | 2021-01-02 08:07 | XR ---
EXAMINATION TYPE: XR KUB DATE OF EXAM: 01/02/2021 HISTORY: Pain Comparison: None.Single KUB is submitted for interpretation. Findings: Right renal calculi: None Visualized. Right ureteral calculi: None Visualized. Left renal calculi: 13 mm left renal calculus. Left ureteral calculi: None Visualized. Pelvic calcifications: None Visualized. Bowel gas pattern is unremarkable. No free air. No mass effects. IMPRESSION: 1. 13 mm left renal calculus.
[2021-01-02] MEDS ORDERED: IOPAMIDOL-370 50ML BTL MISCELLANE ONE (08:11)
--- NOTE | 2021-01-02 09:05 | P.OP ---
Date of Procedure: 01/02/21 Preoperative Diagnosis: Left Renal Calculus Postoperative Diagnosis: Same Procedure(s) Performed: Cystoscopy, left retrograde pyelogram, left ureteroscopy with Holmium laser lithotripsy, left ureteral stent insertion. Anesthesia: GETA Surgeon: Marco A Simms Estimated Blood Loss (ml): 5 IV fluids (ml): 600 Pathology: none sent Condition: stable Disposition: PACU Indications for Procedure: The patient is a 65-year-old white male who underwent a CT scan showed mild left pyelocaliectasis due to a 9 mm left renal pelvic calculus. Urine cytology shows rare atypical cells. The patient denies flank pain, but has elected to undergo treatment for his renal calculus. He was offered the options of ESWL versus ureteroscopy with laser lithotripsy. The pros and cons of each were reviewed in detail, and he has elected to undergo the latter. Operative Findings: Left renal pelvic calculus, dusted completely. Description of Procedure: The patient was taken to the operating room and placed in the dorsolithotomy position, with legs supported in Rohith stirrups. The external genitalia was prepped and draped sterilely. The 30 lens was used to introduce the 21-Albanian Israel cystoscopic sheath through the urethra and into the bladder under direct vision. The prostatic urethra showed evidence of mild lateral lobe enlargement. The bladder was examined in its entirety. Both ureteral orifices were normal anatomic location and configuration, and clear urine effluxed from both. No tumors or foreign bodies were seen. Using a 10-Albanian cone-tipped catheter, a left retrograde pyelogram was performed. The course of the ureter was seen on fluoroscopy. The ureter was normal in course and caliber, and there was no evidence of hydronephrosis. No filling defects were seen. A 0.038 inch Glidewire was passed through the cystoscope. The left ureteral orifice was cannulated, and the Glidewire was advanced up to the renal pelvis. The cystoscope was removed, and an 11/13- Albanian ureteral access catheter was passed over the wire, up to the proximal ureter. The flexible ureteroscope was then passed through the ureteral access catheter sheath, up to the stone which was located within the left renal pelvis. The 200 micron Holmium laser probe was passed through the ureteroscope, and lithotripsy was performed utilizing a dusting mode. The calculus fragmented readily, likely composed of calcium oxalate dihydrate. Lithotripsy was continued until there were no residual calculus fragments exceeding the size of the laser fiber tip. The ureteroscope was removed. The Glidewire was passed through the ureteral access catheter sheath, which was removed. The Glidewire was then backloaded into the cystoscope, which was passed into the bladder. A 28 cm, 4.8-Albanian double-J ureteral stent was placed over the wire. Proper stent positioning was verified fluoroscopically and endoscopically. The bladder was emptied and the cystoscope removed. The patient tolerated the procedure well and was taken to the recovery room in stable condition. [facility] Report: Procedure Acuity: Elective Stone Size and Location: 9 mm, left renal pelvis Ureteral Dilation: No Ureteral Access Sheath Used: Yes Stone Sent for Analysis: No All Stones/Fragments Were Removed with a Basket: No Complications: No Preoperative Antibiotics Given: Yes Stent Placed: Yes If Stent Placed, Was String Left Attached: No If Stent Placed, When is it to be Removed: 1 week Discharge Medications: Tamsulosin
--- NOTE | 2021-01-02 09:08 | FL ---
EXAMINATION TYPE: FL urography retrograde DATE OF EXAM: 01/02/2021 COMPARISON: NONE HISTORY: Left Kidney Stone TECHNIQUE: Fluoroscopy. FINDINGS: Fluoroscopic guidance was provided during procedure performed by Dr. Simms . A total of 38 seconds of fluoroscopic time was utilized during the procedure and 4 spot images was acquired. IMPRESSION: As Above.
[2021-01-02] MEDS: HYDROmorphone 0.5 MG/0.5 ML SYRINGE IVP PRN ×2 (09:10→09:20)
[2021-01-02 09:12] VITALS: TEMP 97.8
[2021-01-02] MEDS ORDERED: KETOROLAC 30 MG/ML 1 ML VIAL ONE (11:52)
[2021-01-02] MEDS ORDERED: KETOROLAC 15 MG/ML 1 ML VIAL IVP ONE (11:55)
--- NOTE | 2021-01-02 12:09 | P.CRDCN ---
History of Present Illness Consult date: 01/02/21 History of present illness: HISTORY OF PRESENT ILLNESS: This is a 65-year-old male with a past medical history significant for ascending aortic dilation, hypertension, asymptomatic bradycardia, and former nicotine dependence. Patient follows in the office with Dr. Singh. We have been asked to see the patient in consultation for bradycardia. Patient underwent elective outpatient cystoscopy, left retrograde pyelogram, left ureteroscopy with holmium laser lithotripsy and left ureteral stent insertion with Dr. Simms secondary to left renal calculus. Postprocedure, the patient was noted to be bradycardic and cardiology was consulted for further evaluation. The patient is asymptomatic. The patient was just evaluated in the office by Dr. Hurtado on 12/25/2020 and started on amlodipine and chlorthalidone for his hypertension. He has known bradycardia which he has been asymptomatic for. Most recent EKG completed in the office on 10/17/2020 revealed sinus bradycardia with a heart rate of 43. The patient also wore a 24-hour Holter monitor in October 2020 which revealed sinus mechanism with a minimal heart rate of 32 bpm, maximum 101 bpm, an average of 63 bpm. No significant sinus pauses or sinus arrest was seen. Patient underwent echocardiogram in October 2020 with ejection fraction of 60%. Enlarged ascending aorta. Mild mitral regurgitation. Mild tricuspid regurgitation. The patient also underwent a stress echocardiogram in October 2020 which was negative for stress-induced ischemia. REVIEW OF SYSTEMS: At the time of my exam: CONSTITUTIONAL: Denies fever or chills. HEENT: Denies blurred vision, vision changes, or eye pain. Denies hemoptysis CARDIOVASCULAR: Denies chest pain. Denies orthopnea. Denies PND. Denies palpitations RESPIRATORY: Denies shortness of breath. GASTROINTESTINAL: Denies abdominal pain. Denies nausea or vomiting. HEMATOLOGIC: Denies bleeding disorders. GENITOURINARY: Denies any blood in urine. SKIN: Denies pruitis. Denies rash. PHYSICAL EXAM: VITAL SIGNS: Reviewed. GENERAL: Well-developed in no acute distress. HEENT: Head is normocephalic. Pupils are equal, round. Sclerae anicteric. Mucous membranes of the mouth are moist. Neck supple. No JVD or thyromegaly LUNGS: Respirations even and unlabored. Lungs essentially clear to auscultation bilaterally. HEART: Regular rate and rhythm. S1 and S2 heard. ABDOMEN: Soft. Nondistended. Nontender. EXTREMITIES: Normal range of motion. No clubbing or cyanosis. Peripheral pulses intact. No lower extremity edema NEUROLOGIC: Awake and alert. Oriented x 3. ASSESSMENT: Left renal calculus, status post cystoscopy, left retrograde pyelogram, left ureteroscopy with holmium laser lithotripsy and left ureteral stent insertion Known asymptomatic bradycardia Hypertension Ascending aortic dilation Former nicotine dependence PLAN: Patient has a known history of bradycardia and follows with Dr. Singh. He is asymptomatic. He has no complaints of dizziness or lightheadedness. Denies any presyncope or syncopal episodes at home. He is not on any AV braden blocking agents. Patient is stable for discharge home today. Patient to follow up with Dr. Singh outpatient. Nurse practitioner note has been reviewed by physician. Signing provider agrees with the documented findings, assessment, and plan of care. Past Medical History Past Medical History: Hyperlipidemia, Hypertension, Prostate Disorder, Thyroid Disorder Additional Past Medical History / Comment(s): kidney stones, "mild aortic aneurysm", History of Any Multi-Drug Resistant Organisms: None Reported Past Surgical History: Cholecystectomy, Orthopedic Surgery Additional Past Surgical History / Comment(s): BONE SPUR REMOVED FOOT, COLONOSCOPY, arthroscopy rt knee Past Anesthesia/Blood Transfusion Reactions: Previous Problems w/ Anesthesia Additional Past Anesthesia/Blood Transfusion Reaction / Comment(s): "slow to wake up", Smoking Status: Former smoker - Past Family History Brother(s) Family Medical History: Cancer Medications and Allergies Home Medications Medication Instructions Recorded Confirmed Type Atorvastatin [Lipitor] 20 mg PO 1600 09/28/17 01/02/21 History Levothyroxine Sodium 150 mcg PO 1600 09/28/17 01/02/21 History Chlorthalidone 25 mg PO 1600 12/31/20 01/02/21 History Fish Oil/Dha/Epa [Fish Oil 1,200 1 each PO DAILY 12/31/20 01/02/21 History mg Fish Oil] Multivitamins, Thera [Multivitamin 1 tab PO DAILY 12/31/20 01/02/21 History (formulary)] Psyllium Husk [Metamucil] 0.4 gm PO DAILY 12/31/20 01/02/21 History Tamsulosin HCl [Flomax] 0.4 mg PO HS 12/31/20 01/02/21 History amLODIPine BESYLATE 5 mg PO 1600 12/31/20 01/02/21 History Allergies Allergy/AdvReac Type Severity Reaction Status Date / Time hydrocodone [From Lortab] Allergy facial Verified 12/31/20 15:11 swelling Physical Exam Vitals: Vital Signs Temp Pulse Pulse Resp BP BP Pulse Ox 01/02/21 10:35 34 L 16 139/63 97 01/02/21 10:16 35 L 16 135/81 97 01/02/21 09:36 55 L 16 143/68 96 01/02/21 09:27 58 L 16 161/83 95 01/02/21 09:12 64 16 157/82 97 01/02/21 08:57 97.8 F 69 16 177/86 95 01/02/21 06:45 96.8 F L 69 16 136/91 97 Intake and Output 01/01/21 01/02/21 01/02/21 22:59 06:59 14:59 Intake Total 300 950 Output Total 5 Balance 300 945 Intake: IV 300 950 Output: Estimated Blood Loss 5 Other: Weight 96 kg Results Current Medications Generic Name Dose Route Start Last Admin Trade Name Freq PRN Reason Stop Dose Admin Hydromorphone HCl 0.5 mg 01/02/21 07:00 01/02/21 09:20 Hydromorphone 0.5 Mg/0.5 Ml Syringe IVP 01/02/21 23:00 0.5 mg Q5M PRN Administration Phase I - Pain Control Lactated Ringer's 1,000 mls @ 20 mls/hr 01/02/21 06:01 01/02/21 06:57 Lactated Ringers IV 02/01/21 06:02 1,200 mls .Q24H SUNIL Administration Lidocaine HCl 0.1 ml 01/02/21 06:01 01/02/21 06:57 Lidocaine 1% (10mg/Ml) For Iv Start INTRADERMA 02/01/21 06:02 0.1 ml PER PROTOCOL PRN Administration IV Start Intake and Output 01/01/21 01/02/21 01/02/21 22:59 06:59 14:59 Intake Total 300 950 Output Total 5 Balance 300 945 Intake: IV 300 950 Output: Estimated Blood Loss 5 Other: Weight 96 kg
[2021-01-02] MEDS ORDERED: SCOPOLAMINE 1.5MG/72HR PATCH TRANSDERM ONE (12:10)
[2021-01-02] MEDS ORDERED: DEXAMETHASONE SOD PHOSPHATE 4 MG/ML 1 ML VIAL IVP ONE (12:10)
[2021-01-02] MEDS ORDERED: LACTATED RINGERS 1,000 ML IV ONE (12:15)
[2021-01-02 12:24] VITALS: BP 144/78; PULSE 63
== END 2021-01-02 13:25 | disposition home or self-care (01) ==
LOC: OR 05:53
PROVIDERS: ATTEND Urology
DX: N13.2 Hydronephrosis with renal and ureteral calculous obstruction (principal); E78.5 Hyperlipidemia, unspecified; R00.1 Bradycardia, unspecified; E07.9 Disorder of thyroid, unspecified; I10 Essential (primary) hypertension; Z90.49 Acquired absence of other specified parts of digestive tract; Z98.890 Other specified postprocedural states; Z87.891 Personal history of nicotine dependence; Z80.9 Family history of malignant neoplasm, unspecified; Z79.890 Hormone replacement therapy; Z79.899 Other long term (current) drug therapy; Z88.5 Allergy status to narcotic agent
CPT/HCPCS: 74420; 74018; 52356; C2625; C1758; C1769; J2250; J1100; J2710; J0690; J2405; J2001; J3010; J1885; J0330; J2704; J1170; Q9967

== ENCOUNTER → 2021-02-17 | Outpatient (CLI) | payer MEDICARE ==
--- NOTE | 2021-02-17 15:57 | US ---
EXAMINATION TYPE: US kidneys/renal and bladder DATE OF EXAM: 02/17/2021 COMPARISON: CT A&P 05/27/20 CLINICAL HISTORY: N20.0 CALCULUS OF KIDNEY. Patient states having lithotripsy done in the past. EXAM MEASUREMENTS: Right Kidney: 11.6 x 5.4 x 6.2 cm Left Kidney: 11.5 x 5.4 x 5.0 cm Right Kidney: No hydronephrosis or masses seen Left Kidney: Echogenic foci seen with twinkle artifact; largest 0.7 cm. Bladder: wnl Bilateral Jets seen: Yes There is no evidence for hydronephrosis at this point in time. No nephrolithiasis is seen. No ralph s are identified. The urinary bladder is anechoic. Bilateral ureteral jets are seen. IMPRESSION: Probable nonobstructing 7 mm calculus left kidney.
--- NOTE | 2021-02-18 13:04 | XR ---
EXAMINATION TYPE: XR KUB DATE OF EXAM: 02/17/2021 COMPARISON: 01/02/2021 INDICATION: Renal calculus TECHNIQUE: Single view abdomen supine view FINDINGS: There is a normal bowel gas pattern. Fecal debris scattered throughout the colon. Psoas margins are normal. No organomegaly is present. Previous left-sided renal stone is not identified. No definite ureteral stones evident IMPRESSION: 1. Unremarkable Abdomen
== END | disposition home or self-care (01) ==
LOC: RADUSWWP 15:20
PROVIDERS: ATTEND Urology
DX: N20.0 Calculus of kidney (principal)
CPT/HCPCS: 74018; 76770

== ENCOUNTER → 2021-03-19 | Outpatient (CLI) | payer MEDICARE ==
--- NOTE | 2021-03-19 09:35 | CT ---
EXAMINATION TYPE: CT chest wo con DATE OF EXAM: 03/19/2021 COMPARISON: 04/22/2020 HISTORY: 66-year-old male R91.1, lung nodule TECHNIQUE: Contiguous axial scanning of the chest without IV contrast. Coronal and sagittal reconstru ctions performed. CT DLP: 412 mGycm Automated exposure control for dose reduction was used. FINDINGS: Heart normal size without pericardial effusion. Three-vessel coronary artery calcifications are prese nt in remarkable for coronary artery disease. Aortic root measures aneurysmal at 4.2 cm versus 3.7 cm on 04/22/2020. This larger measurement may be p artially artifactual from cardiac motion. Attention on follow-up. Conventional arch vessel branching anatomy. No thoracic lymphadenopathy by CT size criteria. 3 mm lateral right upper lobe pulmonary nodule, axial image 13, unchanged. 3 mm subpleural pulmonary nodule right upper lobe, axial image 27, unchanged. Minimal strandy atelectasis or scarring in the inferior lingula. No consolidation or pleural effusion . Visualized upper abdomen shows cholecystectomy clips and moderate stool. Very mild degenerative disc disease lower thoracic spine. IMPRESSION: 1. A COUPLE STABLE 3 MM RIGHT UPPER LOBE PULMONARY NODULES COMPATIBLE WITH A BENIGN ETIOLOGY. 2. NO ACUTE PULMONARY PROCESS. 3. 4.2 CM ANEURYSM OF THE AORTIC ROOT (VERSUS 3.7 CM ON 04/22/2020). THIS LARGER MEASUREMENT MAY BE PAR TIALLY ARTIFACTUAL DUE TO CARDIAC MOTION. ATTENTION ON FOLLOW-UP.
== END | disposition home or self-care (01) ==
LOC: RADCTMAIN 07:52
PROVIDERS: ATTEND Internal Medicine
DX: R91.8 Other nonspecific abnormal finding of lung field (principal); I71.9 Aortic aneurysm of unspecified site, without rupture
CPT/HCPCS: 71250

== ENCOUNTER → 2021-09-05 | Outpatient (CLI) | payer MEDICARE ==
--- NOTE | 2021-09-06 04:48 | MR ---
EXAMINATION TYPE: MR lumbar spine wo con DATE OF EXAM: 09/05/2021 COMPARISON: None HISTORY: Low back pain, DDD Multiplanar multi echo imaging of the lumbar spine with no contrast. Lumbar vertebra have fairly normal spacing and alignment. There is Small posterior right-sided disc h erniation at L5-S1. The lumbar neural foramina are widely patent. There is no lumbar paraspinal mass. Sacroiliac joints are intact. I see no bony destructive process. IMPRESSION: Small posterior right side lumbar disc herniation without any impingement on the neural elements. No spinal stenosis. No fracture.
== END | disposition home or self-care (01) ==
LOC: RADMRIMAIN 12:00
PROVIDERS: ATTEND Orthopaedic Surgery Orthopaedic Surgery of the Spine
DX: M51.36 Other intervertebral disc degeneration, lumbar region (principal); M51.26 Other intervertebral disc displacement, lumbar region
CPT/HCPCS: 72148

== ENCOUNTER → 2021-09-19 | Outpatient (CLI) | payer MEDICARE ==
[2021-09-19 18:28] LABS: Basophils # (A) 0.07 X 10*3/uL (0.00-0.10); Basophils % (A) 1.1 %; Eosinophils # (A) 0.14 X 10*3/uL (0.04-0.35); Eosinophils % (A) 2.2 %; HCT 44.1 % (39.6-50.0); HGB 14.6 g/dL (13.0-17.0); Immature Grans, Automated 0.2 %; Lymphocytes # (A) 1.75 X 10*3/uL (0.90-5.00); Lymphocytes % (A) 27.4 %; MCH 29.3 pg (27.0-32.0); MCHC 33.1 g/dL (32.0-37.0); MCV 88.6 fL (80.0-97.0); Mean Platelet Volume 11.1 fL (9.5-12.2); Monocytes # (A) 0.67 X 10*3/uL (0.20-1.00); Monocytes % (A) 10.5 %; NRBC Per 100 WBC 0 /100 WBCS (0.0-0.0); Neutrophils # (A) 3.75 X 10*3/uL (1.80-7.70); Neutrophils % (A) 58.6 %; Platelet Count 184 X 10*3/uL (140-440); RBC 4.98 X 10*6/uL (4.40-5.60); RDW 13.3 % (11.5-14.5); WBC 6.39 X 10*3/uL (4.50-10.00)
[2021-09-19 18:44] LABS: Erythrocyte Sedimentation Rate 3 mm/Hr (0-20)
[2021-09-19 18:45] LABS: Protein, Total 6.6 g/dL (6.2-8.2)
[2021-09-19 18:47] LABS: C Reactive Protein <0.30 mg/dL (0.00-0.80); Rheumatoid Factor, Qnt <10 IU/mL (0-15)
--- NOTE | 2021-09-22 15:13 | US ---
EXAMINATION TYPE: US arterial LE single level DATE OF EXAM: 09/19/2021 1:44 PM CLINICAL HISTORY: M545, M5450. Pt states bilateral hip and leg pain on/off Doppler Waveforms: Right: Multiphasic Left: Multiphasic Ankle-Brachial Indices: Right: 1.3 Left: 1.2 Toe Brachial Indices: Right: 0.9 Left: 0.9 IMPRESSION: JOSH within normal limits
[2021-09-23 16:32] LABS: Albumin 4.24 g/dL (3.80-4.90); Gamma Globulin 0.8 g/dL (0.70-1.50)
== END | disposition home or self-care (01) ==
LOC: RADUSWWP 12:37
PROVIDERS: ATTEND Orthopaedic Surgery Orthopaedic Surgery of the Spine
DX: M51.36 Other intervertebral disc degeneration, lumbar region (principal); R09.89 Other specified symptoms and signs involving the circulatory and respiratory systems
CPT/HCPCS: 84165; 85025; 85652; 86140; 86431; 93922

== ENCOUNTER → 2021-10-23 | Outpatient (CLI) | payer MEDICARE | END | disposition home or self-care (01) | LOC: LABWHC1 13:37 | PROVIDERS: ATTEND Urology | DX: R97.20 Elevated prostate specific antigen [PSA] (principal) | CPT/HCPCS: 36415; 84153 ==

== ENCOUNTER → 2022-01-21 | Outpatient (CLI) | payer MEDICARE | END | disposition home or self-care (01) | LOC: LABWHC1 13:10 | PROVIDERS: ATTEND Urology | DX: R97.20 Elevated prostate specific antigen [PSA] (principal) | CPT/HCPCS: 36415; 84153 ==

== ENCOUNTER → 2022-07-20 | Outpatient (CLI) | payer MEDICARE | END | disposition home or self-care (01) | LOC: LABWHC1 13:33 | PROVIDERS: ATTEND Urology | DX: R97.20 Elevated prostate specific antigen [PSA] (principal) | CPT/HCPCS: 36415; 84153 ==

== ENCOUNTER → 2022-10-02 | Outpatient (CLI) | payer MEDICARE ==
--- NOTE | 2022-10-02 11:26 | MR ---
EXAMINATION TYPE: MR Prostate wo/w con DATE OF EXAM: 10/02/2022 9:41 AM COMPARISON: None. CLINICAL INDICATION:Male, 67 years old with history of R97.20 ELEVATED PSA; Elevated PSA TECHNIQUE: Multi-planar, multi-sequence imaging of the pelvis is performed prior to and following the uncomplicated administration of bolus intravenous gadolinium. CONTRAST: 10 Gadavist Interpretive Criteria: PI-RADS v2.1 SERUM PSA: 5.3 on 07/20/2022. 5.4 on 01/21/2022. SURGICAL PATHOLOGY: 10/16/2020 biopsy, negative. FINDINGS: Prostatic dimensions: 5.8 x 4.3 x 4.2 cm. Ellipsoid Volume:54.85 (PSA density=0.10 ng/mL/mL) CENTRAL GLAND (Central and Transition Zones/CZ+TZ): Multiple bilateral, heterogenous appearing hypertrophic stromal nodules, without suspicious lesion. M edian lobe hypertrophy with protrusion into the base of the bladder. (PI-RADS 2) PERIPHERAL ZONE (PZ): Bilateral linear, indistinct wedgelike areas of low ADC, and low T2 signal, No evidence of masslike a bnormality, or localized perfusional hypervascularity, to further suggest a focus of clinically signi ficant prostate cancer. (PI-RADS 2) SEMINAL VESICLES (SV): Symmetric and unremarkable. PERIPROSTATIC TISSUES: Unremarkable. LYMPH NODES: No enlarged pelvic lymph node. REMAINING PELVIS: Bladder wall is within normal limits given distention. No abnormal free or organized intrapelvic fluid collection. No pathologic bowel dilation or mural thickening. Colonic diverticula are present. No hernia visualized OSSEOUS STRUCTURES: No suspicious osseous abnormality. Right perilabral cyst located superiorly and slightly posterior. IMPRESSION: 1. No specific features for high-risk prostate cancer. Maximum PI-RADS score: 2. 2. Moderate BPH, estimated gland volume 54.85 mL. 3. Right perilabral cysts suggestive of right labral tear superiorly posteriorly.
== END | disposition home or self-care (01) ==
LOC: RADMRIMAIN 08:38
PROVIDERS: ATTEND Urology
DX: N40.0 Benign prostatic hyperplasia without lower urinary tract symptoms (principal); R97.20 Elevated prostate specific antigen [PSA]; M71.311 Other bursal cyst, right shoulder
CPT/HCPCS: 72197; A9585

== ENCOUNTER → 2022-12-17 | Outpatient (CLI) | payer MEDICARE ==
--- NOTE | 2022-12-17 11:39 | XR ---
EXAMINATION TYPE: XR chest 2V DATE OF EXAM: 12/17/2022 11:24 AM COMPARISON: CT low-dose lung cancer screening 04/06/2022 TECHNIQUE: XR chest 2V Frontal and lateral views of the chest. CLINICAL INDICATION:Male, 67 years old with history of R06.00 DYSPNEA, UNSPECIFIED; FINDINGS: Lungs/Pleura: There is no evidence of pleural effusion, focal consolidation, or pneumothorax. Pulmonary vascularity: Unremarkable. Heart/mediastinum: Cardiomediastinal silhouette is unremarkable. Musculoskeletal: No acute osseous pathology. IMPRESSION: No acute cardiopulmonary disease/process.
== END | disposition home or self-care (01) ==
LOC: RADXRMAIN 10:48
PROVIDERS: ATTEND Internal Medicine
DX: R06.00 Dyspnea, unspecified (principal)
CPT/HCPCS: 71046

== ENCOUNTER → 2022-12-25 | Outpatient (CLI) | payer MEDICARE ==
--- NOTE | 2022-12-25 12:51 | US ---
EXAMINATION TYPE: US thyroid st tissue head/neck DATE OF EXAM: 12/25/2022 COMPARISON: NONE CLINICAL INDICATION: Male, 67 years old with history of E03.9 HYPOTHYROIDISM; GLAND SIZE: Right Lobe: 4.0 x 1.2 x 1.8 cm Overall Parenchyma: homogenous but gland is lobulated. Left Lobe: 3.7 x 1.3 x 1.3 cm Overall Parenchyma: homogenous but gland is lobulated. Isthmus Thickness: 0.3 cm NODULES RIGHT: # of nodules measured on right: 0 LEFT: # of nodules measured on left: 0 ISTHMUS: # of nodules measured in the isthmus: 0 Bilateral neck scanned, no evidence of lymphadenopathy. IMPRESSION: Homogeneous lobulated appearance of the thyroid gland without discrete nodule.
== END | disposition home or self-care (01) ==
LOC: RADUSWWP 12:10
PROVIDERS: ATTEND Internal Medicine
DX: E03.9 Hypothyroidism, unspecified (principal)
CPT/HCPCS: 76536

== ENCOUNTER → 2023-01-27 | Outpatient (CLI) | payer MEDICARE ==
--- NOTE | 2023-01-27 10:37 | CT ---
EXAMINATION TYPE: CT sinus wo con DATE OF EXAM: 01/27/2023 COMPARISON: None HISTORY: Sinusitis CT DLP: 605.90 mGycm. Automated Exposure Control for Dose Reduction was Utilized. TECHNIQUE: CT scan of the sinuses is performed without contrast, axial images are obtained, coronal r eformatted images are also reviewed. FINDINGS: Mild to moderate mucosal thickening involving the bilateral maxillary sinuses. Mucous reten tion cyst or polyp noted on the right. There is mild mucosal thickening involving air cells. Sphenoid and frontal sinuses normal development and aeration. No air-fluid levels to suggest acute sinusitis. The ostiomeatal complex is patent glen aterally on the coronal images. Visualized portion of mastoid air cells show no abnormal opacification. The globes are intact bilate rally. IMPRESSION: 1. [id number] chronic ethmoidal and maxillary sinusitis. No evidence of acute sinusitis.
== END | disposition home or self-care (01) ==
LOC: RADCTMAIN 09:14
PROVIDERS: ATTEND Otolaryngology
DX: J32.0 Chronic maxillary sinusitis (principal); J32.2 Chronic ethmoidal sinusitis
CPT/HCPCS: 70486

== ENCOUNTER → 2023-03-24 | Outpatient (CLI) | payer MEDICARE | END | disposition home or self-care (01) | LOC: LABWHC1 12:42 | PROVIDERS: ATTEND Urology | DX: R97.20 Elevated prostate specific antigen [PSA] (principal) | CPT/HCPCS: 36415; 84153 ==

== ENCOUNTER → 2023-03-30 | Outpatient (CLI) | payer MEDICARE ==
--- NOTE | 2023-03-31 14:23 | XR ---
EXAMINATION TYPE: XR chest 2V DATE OF EXAM: 03/30/2023 COMPARISON: 12/17/2022 HISTORY: 68-year-old male shortness of breath, R06.0 TECHNIQUE: Frontal and lateral views FINDINGS: The cardiomediastinal silhouette, aorta, and pulmonary vasculature are within normal limits. Lungs an d pleural spaces are clear. IMPRESSION: No acute cardiopulmonary process.
== END | disposition home or self-care (01) ==
LOC: RADXRMAIN 15:54
PROVIDERS: ATTEND Family Medicine
DX: R06.00 Dyspnea, unspecified (principal)
CPT/HCPCS: 71046

== ENCOUNTER → 2023-03-30 | Outpatient (CLI) | payer MEDICARE ==
[2023-03-31 02:13] LABS: Basophils # (A) 0.03 X 10*3/uL (0.00-0.10); Basophils % (A) 0.3 %; Eosinophils # (A) 0.01 X 10*3/uL (0.04-0.35); Eosinophils % (A) 0.1 %; HCT 44.4 % (39.6-50.0); HGB 14.3 g/dL (13.0-17.0); Lymphocytes # (A) 0.46 X 10*3/uL (0.90-5.00); Lymphocytes % (A) 4.9 %; MCH 29.1 pg (27.0-32.0); MCHC 32.2 g/dL (32.0-37.0); MCV 90.4 FL (80.0-97.0); Mean Platelet Volume 11.9 FL (9.5-12.2); Monocytes # (A) 0.94 X 10*3/uL (0.20-1.00); NRBC Per 100 WBC 0 X 10*3/uL (0.00-0.01); Neutrophils # (A) 7.95 X 10*3/uL (1.80-7.70); Neutrophils % (A) 84.2 %; Platelet Count 147 X 10*3/uL (140-440); RBC 4.91 X 10*6/uL (4.40-5.60); RDW 13.9 % (11.5-14.5); WBC 9.44 X 10*3/uL (4.50-10.00)
[2023-03-31 02:45] LABS: ALT 72 U/L (10-49); AST 66 U/L (14-35); Albumin 3.9 g/dL (3.8-4.9); Albumin/Globulin Ratio 1.56 Ratio (1.60-3.17); Alkaline Phosphatase 116 U/L (41-126); BUN/Creat Ratio 18.77 Ratio (12.00-20.00); Blood Urea Nitrogen 24.4 mg/dL (9.0-27.0); Calcium 9.3 mg/dL (8.7-10.3); Carbon Dioxide 26.3 mmol/L (21.6-31.8); Chloride 94 mmol/L (96-109); Globulin 2.5 g/dL (1.6-3.3); Glucose 107 mg/dL (70-110); Potassium 3.4 mmol/L (3.5-5.5); Sodium 133 mmol/L (135-145); Total Bilirubin 0.8 mg/dL (0.3-1.2); Total Protein 6.4 g/dL (6.2-8.2)
== END | disposition home or self-care (01) ==
LOC: LABWHC1 15:36
PROVIDERS: ATTEND Internal Medicine
DX: E03.9 Hypothyroidism, unspecified (principal); R06.00 Dyspnea, unspecified; R50.9 Fever, unspecified
CPT/HCPCS: 36415; 80053; 84443; 85025; 87636

== ENCOUNTER → 2023-04-07 | Outpatient (CLI) | payer MEDICARE ==
--- NOTE | 2023-04-07 13:56 | CTL ---
ADDENDUM: There are a few tiny pulmonary nodule seen within the right upper lobe which are unchanged. Lung RADS is changed to Lung-RADS 2. Follow-up remains the same in one year. EXAMINATION TYPE: CT Low Dose Lung DATE OF EXAM ORDERED: 04/07/2023 HISTORY: Former smoker. History 40 pack years.. Lung cancer screening CT DLP: [address] CTDI: 2.56 mGy Automated exposure control for dose reduction was used. SCREENING VISIT: Follow-up. COMPARISON: 04/06/2022. TECHNIQUE: Low dose computed tomography scan was performed through the chest at 1 mm thick sections and reconstructed images in multiple planes at 1 mm and [address] DIAGNOSTIC QUALITY: Satisfactory FINDINGS: LUNG NODULES: None. LUNGS: COPD: Severity: None Fibrosis: Severity: None Lymph nodes: No adenopathy. Other findings: RIGHT PLEURAL SPACE: Effusion: None Calcification: None Thickening: None Pneumothorax: None LEFT PLEURAL SPACE: Effusion: None Calcification: None Thickening: None Pneumothorax: None HEART: Heart Size: Normal Coronary Calcification: Mild coronary artery calcification is seen diffusely. Pericardial Effusion: None OTHER FINDINGS: Upper abdomen: None Bony thorax: None Supraclavicular region: None Other: None IMPRESSION: 1. Negative lung cancer screening examination for significant pulmonary nodules. 2. Mild coronary artery calcifications. CT LUNG RAD AND CT CHEST RECOMMENDATION: Lung-Rad 1 Negative: Continue annual screening with LDCT in 12 months. S Modifier (other clinically significant findings): None. MTDD
== END | disposition home or self-care (01) ==
LOC: RADCTMAIN 11:39
PROVIDERS: ATTEND Internal Medicine
DX: Z12.2 Encounter for screening for malignant neoplasm of respiratory organs (principal); I25.10 Atherosclerotic heart disease of native coronary artery without angina pectoris; R91.1 Solitary pulmonary nodule; Z87.891 Personal history of nicotine dependence
CPT/HCPCS: 71271

== ENCOUNTER 2023-07-12 22:22 | Inpatient (IN) | payer MEDICARE ==
[2023-07-12 22:44] LABS: Basophils # (A) 0.1 k/uL (0-0.2); Basophils % (A) 1 %; Eosinophils # (A) 0.3 k/uL (0-0.7); Eosinophils % (A) 3 %; HCT 46.1 % (39.0-53.0); HGB 15.5 gm/dL (13.0-17.5); Lymphocytes % (A) 23 %; MCH 30.1 pg (25.0-35.0); MCHC 33.5 g/dL (31.0-37.0); MCV 89.9 fL (80.0-100.0); Mean Platelet Volume 8.4; Monocytes # (A) 0.5 k/uL (0-1.0); Monocytes % (A) 6 %; Neutrophils # (A) 5.6 k/uL (1.3-7.7); Neutrophils % (A) 65 %; Platelet Count 181 k/uL (150-450); RBC 5.13 m/uL (4.30-5.90); RDW 13.5 % (11.5-15.5); WBC 8.7 k/uL (3.8-10.6)
[2023-07-12 22:56] LABS: INR 0.9 (<1.2); Prothrombin Time 10.3 sec (10.0-12.5)
[2023-07-12 22:57] LABS: Partial Thromboplastin Time 23.7 sec (22.0-30.0)
[2023-07-12 23:40] LABS: ALT 39 U/L (4-49); AST 35 U/L (17-59); African American GFR (CKD) >90 (>60 ml/min/1.73 sqM); Alkaline Phosphatase 60 U/L (38-126); Anion Gap 7 mmol/L; Blood Urea Nitrogen 21 mg/dL (9-20); Calcium 9.4 mg/dL (8.4-10.2); Carbon Dioxide 25 mmol/L (22-30); Chloride 108 mmol/L (98-107); Glucose 150 mg/dL (74-99); Magnesium 1.9 mg/dL (1.6-2.3); Non-African American GFR(CKD) 88 (>60 ml/min/1.73 sqM); Potassium 3.7 mmol/L (3.5-5.1); Sodium 140 mmol/L (137-145); Total Bilirubin 0.5 mg/dL (0.2-1.3); Total Protein 6.6 g/dL (6.3-8.2)
--- NOTE | 2023-07-12 23:42 | ED ---
Chest Pain HPI - General Chief Complaint: Chest Pain Stated Complaint: Chest Pain, L Arm Pain Time Seen by Provider: 07/12/23 22:48 Source: patient, RN notes reviewed Mode of arrival: ambulatory Limitations: no limitations - History of Present Illness Initial Comments: 68-year-old male with past medical history significant for hypertension, asymptomatic bradycardia, former nicotine dependence, neck aortic dilation measured 4.2 cm 2021, follows with Dr. Singh presenting to the ED with complaints of chest pain. Patient reports this afternoon started to experience intermittent chest pains across his chest. States as the day progressed the pain became more frequent in nature to it becoming almost constant. Pain did not radiate. Pain was described as a pressure/burning sensation. Also did note some pain in his left arm hours. No associated nausea or, vomiting, diaphoresis however did admit feeling dizzy with onset of pain. Reports that he took 3 antacids prior to arrival at this time pain is resolved. No current complaints. Reports his last stress test was 6 months ago and reported that was unremarkable. Has not had recent reimaging of his aorta. - Related Data Home Medications Medication Instructions Recorded Confirmed Atorvastatin [Lipitor] 20 mg PO 1600 09/28/17 01/02/21 Levothyroxine Sodium 150 mcg PO 1600 09/28/17 01/02/21 Chlorthalidone 25 mg PO 1600 12/31/20 01/02/21 Fish Oil/Dha/Epa [Fish Oil 1,200 1 each PO DAILY 12/31/20 01/02/21 mg Fish Oil] Multivitamins, Thera [Multivitamin 1 tab PO DAILY 12/31/20 01/02/21 (formulary)] Psyllium Husk [Metamucil] 0.4 gm PO DAILY 12/31/20 01/02/21 Tamsulosin HCl [Flomax] 0.4 mg PO HS 12/31/20 01/02/21 amLODIPine BESYLATE 5 mg PO 1600 12/31/20 01/02/21 Allergies Allergy/AdvReac Type Severity Reaction Status Date / Time hydrocodone [From Lortab] Allergy facial Verified 07/12/23 22:33 swelling Review of Systems ROS Statement: Those systems with pertinent positive or pertinent negative responses have been documented in the HPI. ROS Other: All systems not noted in ROS Statement are negative. Past Medical History Past Medical History: Hyperlipidemia, Thyroid Disorder History of Any Multi-Drug Resistant Organisms: None Reported Past Surgical History: Cholecystectomy, Orthopedic Surgery Additional Past Surgical History / Comment(s): SCOPE TO KNEE, BONE SPUR TO FOOT, COLONOSCOPY, Past Anesthesia/Blood Transfusion Reactions: No Reported Reaction Past Psychological History: No Psychological Hx Reported Smoking Status: Former smoker Past Alcohol Use History: None Reported Past Drug Use History: None Reported - Past Family History Brother(s) Family Medical History: Cancer General Exam Limitations: no limitations General appearance: alert, in no apparent distress Eye exam: Present: normal appearance Neck exam: Present: normal inspection Respiratory exam: Present: normal lung sounds bilaterally Cardiovascular Exam: Present: regular rate GI/Abdominal exam: Present: soft, normal bowel sounds. Absent: distended, tenderness, guarding, rebound, rigid, pulsatile mass Extremities exam: Present: other (No blood pressure discrepancies across all limbs.) Neurological exam: Present: alert, oriented X3 Skin exam: Present: warm, dry Course Vital Signs 07/12/23 07/12/23 22:31 23:30 Temperature 98.4 F Pulse Rate 63 58 L Respiratory 18 16 Rate Blood Pressure 123/76 132/75 O2 Sat by Pulse 96 96 Oximetry Chest Pain MDM - MDM Was pt. sent in by a medical professional or institution (, PA, COUNTER INTELLIGENCE TECHNICIAN, urgent care, hospital, or prison...) When possible be specific @ -No Did you speak to anyone other than the patient for history (EMS, parent, family, police, friend...)? What history was obtained from this source @ -No Did you review nursing and triage notes (agree or disagree)? Why? @ -I reviewed and agree with nursing and triage notes Were old charts reviewed (outside hosp., previous admission, EMS record, old EK G, old radiological studies, urgent care reports/EKG's, prison records)? Report findings @ -Prior history reviewed. For further details please see HPI. Differential Diagnosis (chest pain, altered mental status, abdominal pain women, abdominal pain men, vaginal bleeding, weakness, fever, dyspnea, syncope, headache, dizziness, GI bleed, back pain, seizure, CVA, palpatations, mental health, musculoskeletal)? @ -Differential Chest Pain: Stable Angina, Unstable Angina, STEMI, NSTEMI Aortic Dissection, Pneumothorax, Musculoskeletal, Esophageal Spasm GERD, Cholecystitis, Pancreatitis, Zoster, this is not meant to be an all-inclusive list. EKG interpreted by me (3pts min.). @ -EKG interpreted by me showing a sinus rhythm at [address] or T wave changes. MD 205, QRS 108, QT/QTc 415/417. X-rays interpreted by me (1pt min.). @ -None done CT interpreted by me (1pt min.). @ -CT interpreted me showing no evidence of acute process. Mild to moderate atherosclerotic changes involving the infrarenal abdominal aorta which measures 2.6 cm. Ectasia of the aortic root measuring 4.2 mm. Ascending aortic arch nondilated. There is finding of approximately 3.4 cm segment of left anterior and inferior urinary bladder which is thickened to 1.3 cm. U/S interpreted by me (1pt. min.). @ -None done What testing was considered but not performed or refused? (CT, X-rays, U/S, labs)? Why? @ -None What meds were considered but not given or refused? Why? @ -None Did you discuss the management of the patient with other professionals (professionals i.e. , PA, COUNTER INTELLIGENCE TECHNICIAN, lab, RT, psych nurse, social media manager, post manager, teacher, home school liaison officer, oil field caser)? Give summary @ -Case discussed with Dr. Marin, who accepts admission Was smoking cessation discussed for >3mins.? @ -No Was critical care preformed (if so, how long)? @ -No Were there social determinants of health that impacted care today? How? (Homelessness, low income, unemployed, alcoholism, drug addiction, transportation, low edu. Level, literacy, decrease access to med. care, [facility], rehab)? @ -No Was there de-escalation of care discussed even if they declined (Discuss DNR or withdrawal of care, Hospice)? DNR status @ -No What co-morbidities impacted this encounter? (DM, HTN, Smoking, COPD, CAD, Cancer, CVA, ARF, Chemo, Hep., AIDS, mental health diagnosis, sleep apnea, morbid obesity)? @ -None Was patient admitted / discharged? Hospital course, mention meds given and route, prescriptions, significant lab abnormalities, going to OR and other pertinent info. @ -Admission 68-year-old male presented to the ED with complaints of chest pain. Pain across his chest. During this pain did also have episodes where he felt pain in his left arm. Currently, pain resolved. EKG showed a sinus rhythm without acute findings. Laboratory studies reviewed. Labs including troponin will. Troponin undetectable. Patient will be admitted to observation with serial troponins and telemetry consult to cardiology. Discussed plan of care with patient and family who are in agreement. Undiagnosed new problem with uncertain prognosis? @ -No Drug Therapy requiring intensive monitoring for toxicity (Heparin, Nitro, Insulin, Cardizem)? @ -No Were any procedures done? @ -No Diagnosis/symptom? @ -Chest pain Acute, or Chronic, or Acute on Chronic? @ -Acute Uncomplicated (without systemic symptoms) or Complicated (systemic symptoms)? @ -Uncomplicated at this time Side effects of treatment? @ -No Exacerbation, Progression, or Severe Exacerbation? @ -No Poses a threat to life or bodily function? How? (Chest pain, [place], [place], pneumonia, PE, COPD, DKA, ARF, appy, cholecystitis, CVA, Diverticulitis, Homicidal, Suicidal, threat to staff... and all critical care pts) @ -Possibly however unlikely Disposition Clinical Impression: Chest pain Disposition: ADMITTED IP TO THIS HOSP Condition: Good Referrals: Pillo Lea DO [Primary Care Provider] - 1-2 days Time of Disposition: 01:30
--- NOTE | 2023-07-13 00:03 | XR ---
EXAM: XR Chest, 2 Views CLINICAL HISTORY: ITS.REASON XR Reason: Chest Pain TECHNIQUE: Frontal and lateral views of the chest. COMPARISON: CXR 03/30/2023. FINDINGS: Lungs: Unremarkable. No consolidation. Pleural space: Trace left pleural effusion. No pneumothorax. Heart: Unremarkable. No cardiomegaly. Mediastinum: Unremarkable. Normal mediastinal contour. Bones/joints: Unremarkable. No acute fracture. IMPRESSION: Trace left pleural effusion.
[2023-07-13] MEDS: ASPIRIN 81 MG PO STA ×2 (00:42→11:29)
--- NOTE | 2023-07-13 01:14 | CT ---
EXAM: CT Angiography Abdomen and Pelvis With Runoff to the Lower Extremities Without and With Intravenous Contrast CLINICAL HISTORY: CT Reason: hx AA 4.2 cm, chest pain TECHNIQUE: Axial computed tomographic angiography images of the abdomen, pelvis and lower extremities without and with intravenous contrast. CTDI is 34. 692 mGy and DLP is 876.4 mGy-cm. This CT exam was performed using one or more of the following dose reduction techniques: automated exposure control, adjustment of the mA and/or kV according to patient size, and/or use of iterative reconstruction technique. MIP reconstructed images were created and reviewed. COMPARISON: No relevant prior studies available. FINDINGS: VASCULATURE: Aorta: Mild to moderate atherosclerotic changes involving the infrarenal abdominal aorta. The aorta measures 2.6 cm which is within normal limits. No aneurysm or dissection. The mesenteric and renal vessels are widely patent. Ectasia of the aortic root measuring 4.2 mm. The ascending aortic arch is nondilated. There is no aneurysm or dissection. Celiac trunk and mesenteric arteries: No acute findings. No occlusion or significant stenosis. Renal arteries: No acute findings. No occlusion or significant stenosis. Right iliac arteries: No acute findings. No occlusion or significant stenosis. Right femoral/popliteal arteries: No acute findings. No occlusion or significant stenosis. Right calf/foot arteries: No acute findings. No occlusion or significant stenosis. Left iliac arteries: No acute findings. No occlusion or significant stenosis. Left femoral/popliteal arteries: No acute findings. No occlusion or significant stenosis. Left calf/foot arteries: No acute findings. No occlusion or significant stenosis. Lung bases: Unremarkable. No mass. No consolidation. ABDOMEN: Liver: Unremarkable. No mass. Gallbladder and bile ducts: Previous cholecystectomy. No biliary duct dilation is seen. Pancreas: Unremarkable. No ductal dilation. No mass. Spleen: Unremarkable. No splenomegaly. Adrenals: Unremarkable. No mass. Kidneys and ureters: Unremarkable. No obstructing stones. No hydronephrosis. No solid mass. Stomach and bowel: See below. PELVIS: Appendix: The appendix is normal. Bowel loops are nondilated. There is diverticulosis of the sigmoid colon without evidence of acute diverticulitis. No acute inflammatory changes are seen involving the bowel. Bladder: There is an approximately 3.4 cm segment of the left anterior and inferior urinary bladder wall which is thickened to 1.3 cm. No stones. Reproductive: Unremarkable as visualized. ABDOMEN, PELVIS and LOWER EXTREMITIES: Intraperitoneal space: Unremarkable. No significant fluid collection. No free air. Bones/joints: Mild degenerative changes in the spine. No acute fracture or destructive bone lesion is seen. No dislocation. Soft tissues: Unremarkable. Lymph nodes: Unremarkable. No enlarged lymph nodes. IMPRESSION: 1. Mild to moderate atherosclerotic changes involving the infrarenal abdominal aorta. The aorta measures 2.6 cm which is within normal limits. No aneurysm or dissection. The mesenteric and renal vessels are widely patent. 2. Ectasia of the aortic root measuring 4.2 mm. The ascending aortic arch is nondilated. There is no aneurysm or dissection. 3. There is an approximately 3.4 cm segment of the left anterior and inferior urinary bladder wall which is thickened to 1.3 cm. Consider urologic referral to rule out neoplasm. 4. The appendix is normal. Bowel loops are nondilated. There is diverticulosis of the sigmoid colon without evidence of acute diverticulitis. No acute inflammatory changes are seen involving the bowel.
[2023-07-13] MEDS ORDERED: NITROGLYCERIN SL TABS 0.4 MG TAB SUBLINGUAL PRN ×3 (01:41→15:03)
--- NOTE | 2023-07-13 06:41 | P.HPIM ---
History of Present Illness H&P Date: 07/13/23 Chief Complaint: Chest pain 68-year-old male with hypothyroidism Patient coming in for evaluation of sudden onset chest pain that started yesterday afternoon he describes it as a pressure sensation across his chest comes and goes then became more persistent throughout the day he rates the pain 6-8 out of 10 pain was radiating to the left arm denies any associated nausea v omiting shortness of breath or profuse sweating. He thought it was indigestion for which he took some Tums. He does follow-up with cardiology for some dilated root of aorta, his most recent stress test was about 6 months ago which he recalls to be unremarkable Patient denies any fevers chills abdominal pain nausea vomiting changes in bowel or urinary habits review of systems Pertinent positives as noted in HPI. All other systems were reviewed and are negative on exam Constitutional: No acute distress, conversant, pleasant Eyes: Anicteric sclerae, moist conjunctiva, Pupils equal round reactive to light ENMT: NC/AT Oropharynx clear, no erythema, or exudates Lungs: Clear to auscultation Clear to percussion Normal respiratory effort, no accessory muscle use Cardiovascular: Heart regular in rate and rhythm, No murmurs, gallops, or rubs No peripheral edema Abdominal: Soft Nontender, no guarding, rebound or rigidity Abdomen moving with respiration Normoactive bowel sounds Extremities: No digital cyanosis No clubbing Pedal pulses intact and symmetrical Radial pulses intact and symmetrical No calf tenderness Psychiatric: Alert and oriented to person, place and time Appropriate affect fair judgement Neuro Muscles Strength 5/5 in all 4 extremities Sensation to light touch grossly present throughout Cranial nerves II-XII grossly intact Past Medical History Past Medical History: Hyperlipidemia, Thyroid Disorder History of Any Multi-Drug Resistant Organisms: None Reported Past Surgical History: Cholecystectomy, Orthopedic Surgery Additional Past Surgical History / Comment(s): SCOPE TO KNEE, BONE SPUR TO FOOT, COLONOSCOPY, Past Anesthesia/Blood Transfusion Reactions: No Reported Reaction Past Psychological History: No Psychological Hx Reported Smoking Status: Former smoker Past Alcohol Use History: None Reported Past Drug Use History: None Reported - Past Family History Brother(s) Family Medical History: Cancer Medications and Allergies Home Medications Medication Instructions Recorded Confirmed Type Atorvastatin [Lipitor] 20 mg PO 1600 09/28/17 01/02/21 History Levothyroxine Sodium 150 mcg PO 1600 09/28/17 01/02/21 History Chlorthalidone 25 mg PO 1600 12/31/20 01/02/21 History Fish Oil/Dha/Epa [Fish Oil 1,200 1 each PO DAILY 12/31/20 01/02/21 History mg Fish Oil] Multivitamins, Thera [Multivitamin 1 tab PO DAILY 12/31/20 01/02/21 History (formulary)] Psyllium Husk [Metamucil] 0.4 gm PO DAILY 12/31/20 01/02/21 History Tamsulosin HCl [Flomax] 0.4 mg PO HS 12/31/20 01/02/21 History amLODIPine BESYLATE 5 mg PO 1600 12/31/20 01/02/21 History Allergies Allergy/AdvReac Type Severity Reaction Status Date / Time hydrocodone [From Lortab] Allergy facial Verified 07/12/23 22:33 swelling Physical Exam Vitals: Vital Signs Temp Pulse Resp BP Pulse Ox 07/13/23 06:13 97.7 F 52 L 17 111/80 96 07/13/23 03:22 51 L 17 107/92 96 07/12/23 23:30 58 L 16 132/75 96 07/12/23 22:31 98.4 F 63 18 123/76 96 Intake and Output 07/12/23 07/12/23 07/13/23 14:59 22:59 06:59 Other: Weight 99.79 kg Results CBC & Chem 7: 07/12/23 22:33 07/12/23 22:33 Labs: Abnormal Lab Results - Last 24 Hours (Table) 07/12/23 Range/Units 22:33 Chloride 108 H (98-107) mmol/L BUN 21 H (9-20) mg/dL Glucose 150 H (74-99) mg/dL Assessment and Plan Assessment: 68-year-old male with hypothyroid coming in for evaluation of sudden onset chest pain I discussed the case with ED doctor and accepted the admission for atypical chest pain to rule out ACS with anticipated length of stay less than 2 midnights Atypical chest pain rule out ACS Cardiology consult Troponins negative continue to trend CT thoracic aorta showed ectasia of the aortic root stable compared to before 4.2 mm Nitro as needed for pain Aspirin daily Continue with atorvastatin 20 mg daily EKG showing normal sinus rhythm, shows questionable pattern of S waves in lead I questionable Q wave in lead III, check D-dimer Cardiac monitoring Hypertension controlled Continue with amlodipine 5 mg daily Hypothyroidism Continue levothyroxine daily Incidental finding of bladder thickening CT scan of the thoracic aorta picked up on approximately 3.4 cm segment of the left anterior and inferior urinary bladder wall which is thickened to 1.3 cm Patient has pathology result from 2020 showing mild atypical urothelial cells Urology consult History of BPH continue with Flomax Blood work unremarkable Labs reviewed white count 7 hemoglobin 15 Sodium 140 potassium 3.7 BUN 21 creatinine 0.8 Full code DVT prophylaxis heparin subcutaneous GI prophylaxis Protonix 40 mg p.o. daily
[2023-07-13] MEDS: SODIUM CHLORIDE 0.9% 1,000 ML IV SCH (06:55)
[2023-07-13] MEDS: PANTOPRAZOLE 40 MG TABLET PO SCH (07:41)
[2023-07-13] MEDS: ATORVASTATIN 20 MG TAB PO SCH (08:11)
[2023-07-13] MEDS: ASPIRIN 81 MG PO SCH (08:11)
[2023-07-13] MEDS: amLODIPine 5 MG TAB PO SCH (08:11)
[2023-07-13] MEDS: LEVOTHYROXINE 50 MCG TAB PO SCH (08:11)
[2023-07-13] MEDS: HEPARIN SODIUM,PORCINE 5,000 UNIT/ML 1 ML VIAL SQ SCH (08:22)
[2023-07-13] MEDS ORDERED: HEPARIN SODIUM 1,000 UN/ML (10ML VL) IV PRN (08:55)
[2023-07-13] MEDS: HEPARIN SODIUM 1,000 UN/ML (10ML VL) IV ONE ×2 (09:19→14:26)
[2023-07-13] MEDS: HEPARIN SOD,PORK IN 0.45% NACL 25,000 UNIT in 0.45% NACL 1 250ML.BAG IV SCH (09:20)
[2023-07-13] MEDS ORDERED: ALPRAZolam 0.5 MG TAB PO PRN (11:02)
[2023-07-13] MEDS ORDERED: ALPRAZolam 0.25 MG TAB PO PRN (11:02)
--- NOTE | 2023-07-13 11:12 | P.CRDCN ---
History of Present Illness Consult date: 07/13/23 Consult reason: chest pain History of present illness: History of present illness: This is a 68-year-old male patient of Dr. Singh with past medical history of coronary artery disease, hypertension, dyslipidemia, bradycardia, thoracic aortic dilatation. We have been asked to evaluate the patient for chest pain. Patient initially developed intermittent chest pain that seem to be more frequent and a little bit in his left upper arm. It was coming and going but seems to be worsening. He did take 3 and acids and a while after that it seemed to be better. Overall the pain seems to have improved on its own. He did not have any nitroglycerin. Discussed results of the testing and recommendations for cardiac catheterization. Patient is agreeable to move forward with this and Dr. Singh was contacted. EKG sinus rhythm with ST depression new compared to old EKGs Chest x-ray: No acute findings CT angiogram of the abdomen pelvis reveals mild to moderate atherosclerotic changes involving the infrarenal abdominal aorta. Ectasia of the aortic root measuring 4.2 mm. Ascending aortic arch is nondilated. Approximately 3.4 cm segment of the left anterior and inferior urinary bladder wall which is thickened. Diverticulosis without diverticulitis. CBC within normal limits. D-dimer 0.62. Troponins negative x 2, third troponin 0.045. Glucose 150. BUN 21 creatinine 0.87. Home cardiac medications: Amlodipine 5 mg daily, atorvastatin 20 mg daily, chlorthalidone 25 mg daily, also on levothyroxine. Stress echocardiogram performed 03/25/2023 revealed mild EKG changes in response to exercise. Normal echocardiogram and response to exercise. Echocardiogram performed 03/18/2023 revealed normal EF, mild TR, mild MR, aortic root 3.7. Ascending aorta not seen. Review Of Systems: At the time of my exam: CONSTITUTIONAL: Denies fever or chills. HEENT: Denies blurred vision, vision changes, or eye pain. Denies hemoptysis CARDIOVASCULAR: Denies chest pain. Denies orthopnea. Denies PND. Denies palpitations RESPIRATORY: Denies shortness of breath. GASTROINTESTINAL: Denies abdominal pain. Denies nausea or vomiting. HEMATOLOGIC: Denies bleeding disorders. GENITOURINARY: Denies any blood in urine. SKIN: Denies pruitis. Denies rash. Physical examination: Gen: This is a 68-year-old male in no acute distress. VS: reviewed HEENT: Head is atraumatic, normocephalic. Pupils equal, round. Sclerae is anicteric. NECK: Supple. No JVD. LUNGS: Clear to auscultation. No wheezes or rhonchi. No intercostal retractions. HEART: Regular rate and rhythm. Soft systolic murmur. ABDOMEN: Soft No tenderness. EXTREMITIES: No pedal edema. No calf tenderness. NEUROLOGICAL: Patient is awake, alert and oriented x3. Assessment: Non-ST elevated myocardial infarction History of coronary artery disease Hypertension Dyslipidemia Bradycardia Thoracic aortic dilatation Remote history of tobacco use and dependence Family history of premature coronary artery disease Plan: Resume patient's home cardiac medications Schedule patient for cardiac catheterization today with Dr. Singh N.p.o. Start patient on heparin drip Obtain 2-D echocardiogram and Doppler study to assess cardiac structure and function Further recommendations to follow based upon clinical course Thank you kindly for this consultation. Nurse practitioner note has been reviewed, I agree with documented findings and plan of care. Patient was seen and examined. Past Medical History Past Medical History: Hyperlipidemia, Thyroid Disorder History of Any Multi-Drug Resistant Organisms: None Reported Past Surgical History: Cholecystectomy, Orthopedic Surgery Additional Past Surgical History / Comment(s): SCOPE TO KNEE, BONE SPUR TO FOOT, COLONOSCOPY, Past Anesthesia/Blood Transfusion Reactions: No Reported Reaction Past Psychological History: No Psychological Hx Reported Smoking Status: Former smoker Past Alcohol Use History: None Reported Past Drug Use History: None Reported - Past Family History Brother(s) Family Medical History: Cancer Medications and Allergies Home Medications Medication Instructions Recorded Confirmed Type Atorvastatin [Lipitor] 20 mg PO DAILY 09/28/17 07/13/23 History Chlorthalidone 25 mg PO DAILY 12/31/20 07/13/23 History Multivitamins, Thera [Multivitamin 1 tab PO DAILY 12/31/20 07/13/23 History (formulary)] Psyllium Husk [Metamucil] 1.6 gm PO HS 12/31/20 07/13/23 History amLODIPine BESYLATE 5 mg PO DAILY 12/31/20 07/13/23 History Albuterol Sulfate [Albuterol 2 puff PO RT-Q4H PRN 07/13/23 07/13/23 History Sulfate Hfa] Fluticasone Nasal [place] [Flonase 2 spray EA NOSTRIL HS 07/13/23 07/13/23 History Nasal [place]] Levothyroxine Sodium [Synthroid] 25 mcg PO JOHNSON 07/13/23 07/13/23 History Levothyroxine Sodium [Synthroid] 50 mcg PO MOTUWETHFRSA 07/13/23 07/13/23 Hi story Pantoprazole Sodium [Protonix] 40 mg PO DAILY 07/13/23 07/13/23 History Allergies Allergy/AdvReac Type Severity Reaction Status Date / Time hydrocodone [From Lortab] Allergy facial Verified 07/13/23 07:20 swelling Physical Exam Vitals: Vital Signs Temp Pulse Resp BP Pulse Ox 07/13/23 08:13 56 L 18 96/71 97 07/13/23 06:13 97.7 F 52 L 17 111/80 96 07/13/23 03:22 51 L 17 107/92 96 07/12/23 23:30 58 L 16 132/75 96 07/12/23 22:31 98.4 F 63 18 123/76 96 Intake and Output 07/12/23 07/13/23 07/13/23 22:59 06:59 14:59 Other: Weight 99.79 kg Results 07/12/23 22:33 07/12/23 22:33 Cardiac Enzymes 07/12/23 07/12/23 07/13/23 Range/Units 22:33 22:33 04:16 AST 35 (17-59) U/L Troponin I <0.012 0.015 (0.000-0.034) ng/mL 07/13/23 Range/Units 07:26 AST (17-59) U/L Troponin I 0.045 H* (0.000-0.034) ng/mL Coagulation 07/12/23 Range/Units 22:33 PT 10.3 (10.0-12.5) sec APTT 23.7 (22.0-30.0) sec CBC 07/12/23 Range/Units 22:33 WBC 8.7 (3.8-10.6) k/uL RBC 5.13 (4.30-5.90) m/uL Hgb 15.5 (13.0-17.5) gm/dL Hct 46.1 (39.0-53.0) % Plt Count 181 (150-450) k/uL Comprehensive Metabolic Panel 07/12/23 Range/Units 22:33 Sodium 140 (137-145) mmol/L Potassium 3.7 (3.5-5.1) mmol/L Chloride 108 H (98-107) mmol/L Carbon Dioxide 25 (22-30) mmol/L BUN 21 H (9-20) mg/dL Creatinine 0.87 (0.66-1.25) mg/dL Glucose 150 H (74-99) mg/dL Calcium 9.4 (8.4-10.2) mg/dL AST 35 (17-59) U/L ALT 39 (4-49) U/L Alkaline Phosphatase 60 (38-126) U/L Total Protein 6.6 (6.3-8.2) g/dL Albumin 4.0 (3.5-5.0) g/dL Current Medications Generic Name Dose Route Start Last Admin Trade Name Freq PRN Reason Stop Dose Admin Amlodipine Besylate 5 mg 07/13/23 09:00 07/13/23 08:11 Amlodipine 5 Mg Tab PO 5 mg DAILY SUNIL Administration Aspirin 81 mg 07/13/23 09:00 07/13/23 08:11 Aspirin 81 Mg PO 81 mg DAILY SUNIL Administration Atorvastatin Calcium 20 mg 07/13/23 09:00 07/13/23 08:11 Atorvastatin 20 Mg Tab PO 20 mg DAILY SUNIL Administration Heparin Sodium (Porcine) 0 unit 07/13/23 08:55 Heparin Sodium 1,000 Un/Ml (10ml Vl) IV PER PROTOCOL PRN Low PTT Protocol Sodium Chloride 1,000 mls @ 75 mls/hr 07/13/23 06:45 07/13/23 06:55 Saline 0.9% IV 75 mls/hr .[id number] SUNIL Administration Heparin Sodium/Sodium Chloride 250 mls @ 10 mls/hr 07/13/23 09:00 07/13/23 09:20 25,000 unit/ Sodium Chloride IV 10.021 units/kg/hr .Q24H SUNIL 10 mls/hr Administration Protocol 10.021 UNITS/KG/HR Levothyroxine Sodium 50 mcg 07/13/23 08:00 07/13/23 08:11 Levothyroxine 50 Mcg Tab PO 50 mcg [id number]@0630 SUNIL Administration Levothyroxine Sodium 25 mcg 07/18/23 06:30 Levothyroxine 25 Mcg Tab PO Johnson@0630 SUNIL Nitroglycerin 0.4 mg 07/13/23 01:41 Nitroglycerin Sl Tabs 0.4 Mg Tab SUBLINGUAL Q5M PRN Chest Pain Pantoprazole Sodium 40 mg 07/13/23 07:30 07/13/23 07:41 Pantoprazole 40 Mg Tablet PO 40 mg [id number] [facility] Administration Intake and Output 07/12/23 07/13/23 07/13/23 22:59 06:59 14:59 Other: Weight 99.79 kg 07/12/23 22:33 07/12/23 22:33
[2023-07-13] MEDS: ASPIRIN 325 MG TAB PO STA (11:14)
[2023-07-13] MEDS: ATORVASTATIN 80 MG TAB PO STA (11:24)
[2023-07-13] MEDS: IV FLUID CONTINUATION 900 ML IV ONE (14:10)
[2023-07-13] MEDS ORDERED: fentaNYL (PF) 50 MCG/ML 2 ML AMP ONE (14:14)
[2023-07-13] MEDS ORDERED: HEPARIN SODIUM 1,000 UN/ML (10ML VL) ONE (14:14)
[2023-07-13] MEDS ORDERED: VERAPAMIL 2.5 MG/ML 2 ML AMP ONE (14:21)
[2023-07-13] MEDS: fentaNYL (PF) 50 MCG/ML 2 ML AMP IVP ONE (14:21)
[2023-07-13] MEDS: LIDOCAINE 1% INJ 10MG/ML (20 ML MDV) SQ ONE (14:22)
[2023-07-13] MEDS ORDERED: LIDOCAINE 1% INJ 10MG/ML (20 ML MDV) ONE (14:22)
[2023-07-13] MEDS: VERAPAMIL SYRINGE (5 MG/10 ML) INTRAARTER ONE (14:23)
--- NOTE | 2023-07-13 14:25 | P.PN ---
Progress Note - Text Progress Note Date: 07/13/23 Patient now has elevated troponin. Was seen by cardiology. Started on heparin drip. Pending cardiac cath today. This is an update note for patient , for full note on 07/13/2023. There is no charge associated with this note.
[2023-07-13] MEDS ORDERED: PRASUGREL 10 MG TAB ONE (14:46)
[2023-07-13] MEDS: PRASUGREL 10 MG TAB PO ONE (14:48)
[2023-07-13] MEDS ORDERED: niCARdipine 25 MG/10 ML VIAL ONE (14:55)
[2023-07-13] MEDS: niCARdipine Syringe (1,000 mcg/10 mL) INTRACORON ONE (14:59)
[2023-07-13] MEDS: NITROGLYCERIN 1000MCG/10ML SYRINGE INTRACORON ONE (14:59)
[2023-07-13] MEDS ORDERED: ZOLPIDEM 5 MG TAB PO PRN (15:03)
[2023-07-13] MEDS ORDERED: RX INFO: IV CONTRAST WAS GIVEN 1 EACH MISC MISCELLANE PRN (15:03)
[2023-07-13] MEDS ORDERED: ATROPINE SULFATE 0.1 MG/ML 10ML SYRINGE IV PRN (15:03)
[2023-07-13] MEDS: IOPAMIDOL-370 200ML BTL INJ ONE (15:07)
[2023-07-13] MEDS ORDERED: LEVOTHYROXINE 75 MCG TAB PO SCH (16:00)
--- NOTE | 2023-07-13 18:09 | P.PCN ---
Date of Procedure: 07/13/23 Operative Findings: Cardiac catheterization and percutaneous coronary intervention Performing physician Matthew Singh MD Procedure performed - Selective right and left coronary angiogram - Successful stenting of the mid LCx using 4.5 x 15 mm Xience AYAAN with an excellent angiographic results and adjunctive use of intravascular imaging - Ultrasound-guided access of the right radial artery Indication Acute non-ST elevation myocardial infarction Complications None Level of sedation Moderate with a sedation length of 42 minutes Procedure description After turning informed consent the patient was brought to the cardiac Injection Molding Supervisor. The right radial artery was cannulated is remarkable for technique under ultrasound guidance and micropuncture wire passed easily then I placed a 6 [place] 11 cm sheath at the right radial artery. I gave the patient 2 mg of verapamil intra-arterial and 5000 of heparin intravenous. Selective right and left coronary angiogram performed using JR4 and JL 3.5 catheters. After that I did intervene on the left circumflex coronary artery. Anticoagulation continues using heparin with continuous ACT monitoring. Subsequently I did engage the left main using XB 3.5 guiding catheter. I did wire the left circumflex using a whisper wire. Intravascular ultrasound was advanced under fluoroscopy guidance and showed a diameter around 4.5 mm with a calcified but not heavily calcified vessel. Predilatation was performed using 3 mm balloon before I deployed 4.5 x 15 mm stent where the stent was positioned under fluoroscopy guidance and deployed under 12 abel. Postdilatation was performed using 4.5 mm noncompliant balloon with final angiogram showing excellent angiographic results and the procedure was completed with no complication Selective coronary angiogram The RCA is a large caliber vessel and the dominant vessel with mild disease only The left main is short and almost not exist The left circumflex is a large caliber vessel and has a critical disease in the midportion with LANCE II flow The LAD is calcified with mild disease in the proximal portion and severe disease in the midportion with a focal lesion Conclusion Critical disease involving the mid LCx. I performed successful PCI Severe disease involving the LAD Postprocedure management Continue the current medical regimen including dual antiplatelet therapy using aspirin and Effient for at least 6 months Consider medical treatment for the LAD lesion and possibly PCI down the line
[2023-07-13] MEDS: SODIUM CHLORIDE 0.9% 1,000 ML in EMPTY BAG 1 BAG IV SCH (20:32)
[2023-07-13] MEDS ORDERED: TAMSULOSIN 0.4 MG CAP.ER.24H PO SCH (21:00)
[2023-07-14] MEDS ORDERED: HEPARIN SODIUM,PORCINE (1 ML) 2,500 UNIT in SODIUM CHLORIDE 0.9% 250 ML IRRIGATION PRN (07:00)
[2023-07-14] MEDS ORDERED: HEPARIN SODIUM,PORCINE 10,000 UNIT in SODIUM CHLORIDE 0.9% 1,000 ML IRRIGATION PRN (07:00)
[2023-07-14] MEDS: PRASUGREL 10 MG TAB PO SCH (07:54)
--- NOTE | 2023-07-14 09:18 | P.GSCN ---
History of Present Illness Consult date: 07/14/23 Reason for Consult: Bladder wall thickening Requesting physician: Zohreh Marin History of present illness: The patient is a 68-year-old white male admitted with chest pain. He underwent a PTCA with stenting. He is well-known to me. He has been treated for recurrent UTIs presumably due to prostatitis. He underwent prostate biopsies in 2020 that showed no evidence of malignancy. Cystoscopy in December 2020 showed evidence of BPH. The bladder appeared normal at that time. He is considering a TURP later this year. A CT angiogram with runoff yesterday suggested bladder wall thickening. I am consulted for this reason. The patient states that he is voiding without difficulty, and specifically he denies dysuria and hematuria. Review of Systems - Genitourinary Reports as per HPI Past Medical History Past Medical History: Hyperlipidemia, Thyroid Disorder History of Any Multi-Drug Resistant Organisms: None Reported Past Surgical History: Cholecystectomy, Orthopedic Surgery Additional Past Surgical History / Comment(s): SCOPE TO KNEE, BONE SPUR TO FOOT, COLONOSCOPY, Past Anesthesia/Blood Transfusion Reactions: No Reported Reaction Past Psychological History: No Psychological Hx Reported Smoking Status: Former smoker Past Alcohol Use History: None Reported Additional Past Alcohol Use History / Comment(s): QUIT SMOKING 2010 Past Drug Use History: None Reported - Past Family History Brother(s) Family Medical History: Cancer Medications and Allergies Home Medications Medication Instructions Recorded Confirmed Type Atorvastatin [Lipitor] 20 mg PO DAILY 09/28/17 07/13/23 History Chlorthalidone 25 mg PO DAILY 12/31/20 07/13/23 History Multivitamins, Thera [Multivitamin 1 tab PO DAILY 12/31/20 07/13/23 History (formulary)] Psyllium Husk [Metamucil] 1.6 gm PO HS 12/31/20 07/13/23 History amLODIPine BESYLATE 5 mg PO DAILY 12/31/20 07/13/23 History Albuterol Sulfate [Albuterol 2 puff PO RT-Q4H PRN 07/13/23 07/13/23 History Sulfate Hfa] Fluticasone Nasal [place] [Flonase 2 spray EA NOSTRIL HS 07/13/23 07/13/23 History Nasal [place]] Levothyroxine Sodium [Synthroid] 25 mcg PO JOHNSON 07/13/23 07/13/23 History Levothyroxine Sodium [Synthroid] 50 mcg PO MOTUWETHFRSA 07/13/23 07/13/23 History Pantoprazole Sodium [Protonix] 40 mg PO DAILY 07/13/23 07/13/23 History Allergies Allergy/AdvReac Type Severity Reaction Status Date / Time hydrocodone [From Lortab] Allergy facial Verified 07/13/23 07:20 swelling Surgical - Exam Vital Signs Temp Pulse Resp BP Pulse Ox 98.4 F 63 18 123/76 96 07/12/23 22:31 07/12/23 22:31 07/12/23 22:31 07/12/23 22:31 07/12/23 22:31 - General well developed, well nourished, no distress - Respiratory normal respiratory effort - Psychiatric oriented to time, oriented to person, oriented to place, speech is normal, memory intact Results - Labs 07/12/23 22:33 07/12/23 22:33 Abnormal Lab Results - Last 24 Hours (Table) 07/13/23 07/13/23 Range/Units 07:22 07:26 D-Dimer 0.62 H (<0.60) mg/L FEU Troponin I 0.045 H* (0.000-0.034) ng/mL - Imaging CT scan - abdomen: report reviewed, image reviewed Assessment and Plan (1) Abnormal radiologic findings on diagnostic imaging of renal pelvis, ureter, or bladder Current Visit: Yes Status: Acute Code(s): R93.41 - ABN RADLGC FIND ON DX IMAGING RENAL PELV, URETER, OR BLDDR SNOMED Code(s): 656874181 (2) Benign prostatic hyperplasia with lower urinary tract symptoms Current Visit: Yes Status: Acute Code(s): N40.1 - BENIGN PROSTATIC HYPERPLASIA WITH LOWER URINARY TRACT SYMP SNOMED Code(s): 035975559 Plan: I have reviewed the patient's CT scan. I explained to Mr. Lopes that patients with BPH typically develop bladder wall thickening, and that this is the likely cause of the bladder wall thickening seen on CT scan. When reviewing the CT scan, I saw only 1 cut where there appeared to be asymmetric bladder wall thickening. I explained to the patient that asymmetric bladder wall thickening could be due to urothelial carcinoma, and I offered to perform office cystoscopy to exclude this. Given that the risk is low, he has elected to forego cyst oscopy but will contact me if he develops any changes, particularly hematuria. He will otherwise keep his previously scheduled appointment with me this fall. Please notify me if I can be of any further assistance. Time with Patient: Greater than 30
[2023-07-14 10:51] LABS: African American GFR (CKD) >90 (>60 ml/min/1.73 sqM); Anion Gap 7 mmol/L; Blood Urea Nitrogen 16 mg/dL (9-20); Calcium 9.1 mg/dL (8.4-10.2); Carbon Dioxide 24 mmol/L (22-30); Chloride 108 mmol/L (98-107); Glucose 183 mg/dL (74-99); Magnesium 1.8 mg/dL (1.6-2.3); Non-African American GFR(CKD) 82 (>60 ml/min/1.73 sqM); Potassium 3.5 mmol/L (3.5-5.1); Sodium 139 mmol/L (137-145)
[2023-07-14 11:44] VITALS: BMI 29.0
--- NOTE | 2023-07-14 12:12 | CA ---
Transthoracic Echo Report Name: Eliot Lopes Age: 68 Gender: M : 1955 Exam Date: 07/14/2023 08:10 Exam Location: [facility] Ht (in): 73 Wt (lb): 220 Ordering Physician: Shira Broderick Attending/Referring Phys: [id number], Meggan Office Supervisor Berkley Scott RDCS Procedure CPT: Indications: LVF Cardiac Hx: stents Technical Quality: Good Contrast 1: Total Dose (mL): Contrast 2: Total Dose (mL): MEASUREMENTS (Male / Female) Normal Values 2D ECHO LV Diastolic Diameter PLAX 4.8 cm 4.2 - 5.9 / 3.9 - 5.3 cm LV Systolic Diameter PLAX 3.2 cm IVS Diastolic Thickness 1.3 cm 0.6 - 1.0 / 0.6 - 0.9 cm LVPW Diastolic Thickness 1.2 cm 0.6 - 1.0 / 0.6 - 0.9 cm LV Relative Wall Thickness 0.5 RV Internal Dim ED PLAX 3.9 cm LA Systolic Diameter LX 4.2 cm 3.0 - 4.0 / 2.7 - 3.8 cm LV Diastolic Volume MOD 4C 131.9 cm??? LV Systolic Volume MOD 4C 54.6 cm??? LV Ejection Fraction MOD 4C 58.6 % LV Cardiac Index MOD 4C 1655.1 cm???/min???m??? LV Diastolic Length 4C 9.2 cm LV Systolic Length 4C 7.3 cm LV Diastolic Volume MOD 2C 140.9 cm??? LV Systolic Volume MOD 2C 71.6 cm??? LV Ejection Fraction MOD 2C 49.2 % LV Cardiac Index MOD 2C 1487.0 cm???/min???m??? LV Diastolic Length 2C 9.6 cm LV Systolic Length 2C 7.7 cm LA Volume 58.7 cm??? 18 - 58 / 22 - 52 cm??? LA Volume Index 25.7 cm???/m??? 16 - 28 cm???/m??? M-MODE Aortic Root Diameter MM 3.8 cm AV Cusp Separation MM 2.3 cm DOPPLER AV Peak Velocity 123.2 cm/s AV Peak Gradient 6.1 mmHg MV Area PHT 3.8 cm??? Mitral E Point Velocity 76.4 cm/s Mitral A Point Velocity 64.2 cm/s Mitral E to A Ratio 1.2 MV Deceleration Time 198.6 ms TR Peak Velocity 214.6 cm/s TR Peak Gradient 18.4 mmHg Right Ventricular Systolic Press 23.4 mmHg FINDINGS Left Ventricle Left ventricular ejection fraction is estimated at 55-60 %. Left ventricular cavity size normal. Mildly increased septal wall thickness. No obvious regional wall motion abnormalities. Right Ventricle Normal right ventricular size and function. . Right ventricular systolic pressure within normal limits. Right Atrium Normal right atrial size. No right atrial thrombus or mass seen. Left Atrium Mildly increased left atrial diameter. No left atrial thrombus or mass present. Mitral Valve Structurally normal mitral valve. No mitral stenosis, regurgitation or prolapse. Aortic Valve Trileaflet aortic valve. Thickened aortic valve without stenosis. Tricuspid Valve Structurally normal tricuspid valve. Mild tricuspid regurgitation. Pulmonic Valve Structurally normal pulmonic valve. Trace pulmonic regurgitation. Pericardium No pericardial or pleural effusion. Aorta Mild aortic dilatation at the level of the sinuses of valsalva 38 mm CONCLUSIONS Left ventricular ejection fraction is estimated at 55-60 %. No obvious regional wall motion abnormalities. Mild LA dilatation No significant valvular dysfunction RVSP estimated at less than 25 mmHg Previewed by: Dr Kermit Keating (Electronically Signed) Final Date: 14 Jul 2023 12:11
[2023-07-14] MEDS ORDERED: NITROGLYCERIN SL TABS 0.4 MG TAB SUBLINGUAL PRN (13:44)
[2023-07-14] MEDS ORDERED: ALPRAZolam 0.5 MG TAB PO PRN (13:44)
[2023-07-14] MEDS ORDERED: ALPRAZolam 0.25 MG TAB PO PRN (13:44)
--- NOTE | 2023-07-14 13:50 | P.PN ---
Subjective HISTORY OF PRESENT ILLNESS: This is a 68-year-old male patient of Dr. Singh with past medical history of coronary artery disease, hypertension, dyslipidemia, bradycardia, thoracic aortic dilatation. We have been asked to evaluate the patient for chest pain. Patient initially developed intermittent chest pain that seem to be more frequent and a little bit in his left upper arm. It was coming and going but seems to be worsening. He did take 3 and acids and a while after that it seemed to be better. Overall the pain seems to have improved on its own. He did not have any nitroglycerin. Discussed results of the testing and recommendations for cardiac catheterization. Patient is agreeable to move forward with this and Dr. Singh was contacted. EKG sinus rhythm with ST depression new compared to old EKGs Chest x-ray: No acute findings CT angiogram of the abdomen pelvis reveals mild to moderate atherosclerotic changes involving the infrarenal abdominal aorta. Ectasia of the aortic root measuring 4.2 mm. Ascending aortic arch is nondilated. Approximately 3.4 cm segment of the left anterior and inferior urinary bladder wall which is thickened. Diverticulosis without diverticulitis. CBC within normal limits. D-dimer 0.62. Troponins negative x 2, third troponin 0.045. Glucose 150. BUN 21 creatinine 0.87. Home cardiac medications: Amlodipine 5 mg daily, atorvastatin 20 mg daily, chlorthalidone 25 mg daily, also on levothyroxine. Stress echocardiogram performed 03/25/2023 revealed mild EKG changes in response to exercise. Normal echocardiogram and response to exercise. Echocardiogram performed 03/18/2023 revealed normal EF, mild TR, mild MR, aortic root 3.7. Ascending aorta not seen. 07/14/2023 Patient examined this morning the bedside. Patient is status postcardiac catheterization with PCI of the circumflex. Patient was also found to have a tight LAD lesion. Patient denies chest pain or pressure. He denies shortness of breath. Vital signs are stable. PHYSICAL EXAM: VITAL SIGNS: Reviewed. GENERAL: Well-developed in no acute distress. NECK: Supple. No JVD or thyromegaly LUNGS: Respirations even and unlabored. Lungs essentially clear to auscultation bilaterally. HEART: Regular rate and rhythm. S1 and S2 heard. EXTREMITIES: Normal range of motion. No clubbing or cyanosis. Peripheral pulses intact. No lower extremity edema ASSESSMENT: Non-ST elevated myocardial infarction, status post PCI of the circumflex History of coronary artery disease Hypertension Dyslipidemia Bradycardia Thoracic aortic dilatation Remote history of tobacco use and dependence Family history of premature coronary artery disease PLAN: Continue current cardiac medications Continue dual antiplatelet therapy with aspirin and Effient for 12 months. Continue statin therapy. Increase dosage to 40 mg daily. LDL goal less than 70. N.p.o. at midnight Patient to undergo repeat cardiac catheterization tomorrow with Dr. Singh with PCI of the LAD Further recommendations pending patient course Nurse practitioner note has been reviewed by physician. Signing provider agrees with the documented findings, assessment, and plan of care documented by BLUEPRINT TRIMMER as a scribe. Objective - Vital Signs Vital signs: Vital Signs Temp 98.3 F 07/14/23 07:45 Pulse 60 07/14/23 12:00 Resp 16 07/14/23 12:00 BP 118/75 07/14/23 12:00 Pulse Ox 96 07/14/23 12:00 FiO2 Intake & Output 07/13/23 07/14/23 07/14/23 18:59 06:59 18:59 Intake Total 980 480 356 Balance 980 480 356 Weight 99.79 kg 99.79 kg Intake: IV 500 Oral 480 480 356 Other: Voiding Method Toilet Toilet # Voids 1 1 - Labs CBC & Chem 7: 07/12/23 22:33 07/14/23 09:42 Labs: Abnormal Lab Results - Last 24 Hours (Table) 07/14/23 Range/Units 09:42 Chloride 108 H (98-107) mmol/L Glucose 183 H (74-99) mg/dL
--- NOTE | 2023-07-14 14:02 | P.PN ---
Subjective Progress Note Date: 07/14/23 Hospital Course: 68-year-old male with history of hypothyroidism, GERD, hypertension, dyslipide audrey presented with chest pain. On arrival, vital signs were within normal limits. CBC unremarkable. BMP showed elevated BUN at 21, initial troponin negative. D-dimer slightly elevated 0.62. Troponin went up at 0.045. EKG on arrival showed sinus rhythm with first-degree AV block, and nonspecific ST-T wave changes. Chest x-ray did not show any acute process. CT chest showed mild to moderate atherosclerotic changes involving the inferior abdominal aorta, ectasia of the aortic root measuring 4.26 mm without any aneurysm or dissection, 3.4 cm segment of left anterior inferior urinary bladder wall thickened to 1.3 cm, and sigmoid colonic diverticulosis. Patient was evaluated by cardiology, started on heparin drip. He underwent left heart cath with critical disease involving the mid left circumflex with successful stent placement, also has severe disease involving LAD. Subjective: Patient seen and examined at bedside. No acute events overnight. Denies any further chest pain. Pertinent positives and negatives as discussed above, a complete review of systems was performed and all other systems are negative. Vitals Signs Reviewed. General: Nontoxic, no distress, appears at stated age Derm: Warm, dry Head: Atraumatic, normocephalic, symmetric Eyes: EOMI, no lid lag, anicteric sclera Mouth: No lip lesion, mucus membranes moist Cardiovascular: S1S2 reg, no murmur Lungs: CTA bilateral, no rhonchi, no rales, no accessory muscle use Abdominal: Soft, nontender to palpation, no guarding, no appreciable organomegaly Ext: No gross muscle atrophy, no edema, no contractures Neuro: CN II-XI grossly intact, no focal neuro deficits Psych: Alert, oriented, appropriate affect Data Reviewed Today: Pertinent Labs: Sodium 139, creatinine 0.95, BUN 16, magnesium 1.8 Imaging: EKG independently interpreted from this morning, shows sinus bradycardia with first-degree AV block, nonspecific ST-T wave changes. Echocardiogram report reviewed, shows LVEF 55 to 60%, no regional wall motion abnormalities, mild LA dilation. Assessment and Plan: Active: Acute NSTEMI Coronary artery disease Sinus bradycardia, first-degree AV block -Continue telemetry monitoring -Status post left circumflex stent -Discussed management with cardiology, pending stent to LAD tomorrow -Continue aspirin 81 mg and Effient 10 mg daily, atorvastatin 40 mg daily Hypertension -On losartan 50 mg daily Thickened bladder wall -Urology note reviewed, outpatient follow-up for cystoscopy, which patient decl ined -Patient was told that if he ever develops hematuria, he needs further workup Chronic: GERD Hypothyroidism DVT ppx: Subcu heparin Code status: Full code Anticipated discharge place: Pending clinical course Anticipated discharge time: Pending clinical course Objective - Vital Signs Vital signs: Vital Signs Temp 98.3 F 07/14/23 07:45 Pulse 60 07/14/23 13:42 Resp 16 07/14/23 13:42 BP 118/75 07/14/23 12:00 Pulse Ox 96 07/14/23 12:00 FiO2 Intake & Output 07/13/23 07/14/23 07/14/23 18:59 06:59 18:59 Intake Total 980 480 356 Balance 980 480 356 Weight 99.79 kg 99.79 kg Intake: IV 500 Oral 480 480 356 Other: Voiding Method Toilet Toilet # Voids 1 1 - Labs CBC & Chem 7: 07/12/23 22:33 07/14/23 09:42 Labs: Abnormal Lab Results - Last 24 Hours (Table) 07/14/23 Range/Units 09:42 Chloride 108 H (98-107) mmol/L Glucose 183 H (74-99) mg/dL
[2023-07-14 15:09] LABS: Chol/HDL Ratio 4.43 Ratio; LDL Cholesterol,Calculated 52.8 mg/dL (0.0-131.0)
[2023-07-14] MEDS: HEPARIN SODIUM,PORCINE 5,000 UNIT/ML 1 ML VIAL SQ SCH (16:48)
[2023-07-15] MEDS ORDERED: HEPARIN SODIUM,PORCINE 10,000 UNIT in SODIUM CHLORIDE 0.9% 1,000 ML IRRIGATION PRN (07:00)
[2023-07-15] MEDS ORDERED: HEPARIN SODIUM,PORCINE (1 ML) 2,500 UNIT in SODIUM CHLORIDE 0.9% 250 ML IRRIGATION PRN (07:00)
[2023-07-15 08:28] LABS: Sodium 138 mmol/L (137-145)
[2023-07-15 08:29] LABS: African American GFR (CKD) >90 (>60 ml/min/1.73 sqM); Anion Gap 7 mmol/L; Blood Urea Nitrogen 15 mg/dL (9-20); Calcium 9.4 mg/dL (8.4-10.2); Carbon Dioxide 24 mmol/L (22-30); Chloride 107 mmol/L (98-107); Glucose 98 mg/dL (74-99); Non-African American GFR(CKD) 86 (>60 ml/min/1.73 sqM); Potassium 3.7 mmol/L (3.5-5.1)
[2023-07-15] MEDS: ATORVASTATIN 80 MG TAB PO ONE (08:43)
[2023-07-15] MEDS: LOSARTAN 50 MG TAB PO SCH (08:43)
[2023-07-15] MEDS: ASPIRIN 325 MG TAB PO ONE (08:43)
[2023-07-15] MEDS: ATORVASTATIN 40 MG TAB PO SCH (08:46)
--- NOTE | 2023-07-15 15:07 | P.PN ---
Subjective Progress Note Date: 07/15/23 Hospital Course: 68-year-old male with history of hypothyroidism, GERD, hypertension, dyslipidemia presented with chest pain. On arrival, vital signs were within normal limits. CBC unremarkable. BMP showed elevated BUN at 21, initial troponin negative. D-dimer slightly elevated 0.62. Troponin went up at 0.045. EKG on arrival showed sinus rhythm with first-degree AV block, and nonspecific ST-T wave changes. Chest x-ray did not show any acute process. CT chest showed mild to moderate atherosclerotic changes involving the inferior abdominal aorta, ectasia of the aortic root measuring 4.26 mm without any aneurysm or dissection, 3.4 cm segment of left anterior inferior urinary bladder wall thickened to 1.3 cm, and sigmoid colonic diverticulosis. Patient was evaluated by cardiology, started on heparin drip. He underwent left heart cath with critical disease involving the mid left circumflex with successful stent placement, also has severe disease involving LAD. Subjective: Physical exam patient seen this morning. He is denying any chest pain. Vitals Signs Reviewed. 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 Psych - Calm and cooperative Assessment and Plan: Active: Acute NSTEMI Coronary artery disease Sinus bradycardia, first-degree AV block -Continue telemetry monitoring -Status post left circumflex stent -Patient is scheduled for repeat heart catheterization today -Continue aspirin 81 mg and Effient 10 mg daily, atorvast for stent placement to the LAD.atin 40 mg daily Hypertension -On losartan 50 mg daily Thickened bladder wall -Urology note reviewed, outpatient follow-up for cystoscopy, which patient declined -Patient was told that if he ever develops hematuria, he needs further workup Chronic: GERD Hypothyroidism DVT ppx: Subcu heparin Code status: Full code Anticipated discharge place: Pending clinical course Anticipated discharge time: Pending clinical course Objective - Vital Signs Vital signs: Vital Signs Temp 98 F 07/15/23 04:00 Pulse 57 L 07/15/23 12:00 Resp 16 07/15/23 12:00 BP 111/73 07/15/23 12:00 Pulse Ox 97 07/15/23 12:00 FiO2 Intake & Output 07/14/23 07/15/23 07/15/23 18:59 06:59 18:59 Intake Total 1068 774 Output Total 200 Balance 1068 -200 774 Weight 99.79 kg Intake: Intake, IV Titration 300 Amount Sodium Chloride 0.9% 1, 300 000 ml @ 75 mls/hr IV . [id number] [facility] Rx#:[id number] Oral 1068 474 Output: Urine 200 Other: Voiding Method Toilet Toilet Toilet # Voids 3 2 - Labs CBC & Chem 7: 07/12/23 22:33 07/15/23 07:44 Labs: Abnormal Lab Results - Last 24 Hours (Table) 07/14/23 Range/Units 09:42 Triglycerides 309.00 H (0.00-149.00) mg/dL VLDL Cholesterol, Calc 61.80 H (5.00-40.00) mg/dL HDL Cholesterol 33.40 L (40.00-60.00) mg/dL
--- NOTE | 2023-07-15 15:47 | P.PN ---
Subjective Patient is doing well denies any chest discomfort dizziness or lightheadedness His breathing is a lot better now On examination his heart sounds are normal normal S1 normal S2 no murmur gallop or rub Breath sounds are clear no rhonchi no crackles Abdomen soft nontender extremities warm no edema No JVD 2D echo shows preserved LV systolic function with mild left atrial enlargement RVSP is normal Impression Non-Q wave myocardial infarction with stenting to the left circumflex He has significantly LAD awaiting coronary stenting by Dr. Singh Mild sinus bradycardia Plan Transfer tech continue atorvastatin 40 mg p.o. daily Continue losartan 50 mg p.o. daily Continue Effient and continue baby aspirin Add carvedilol 3.125 mg twice daily and watch heart rate Objective - Vital Signs Vital signs: Vital Signs Temp 98 F 07/15/23 04:00 Pulse 57 L 07/15/23 12:00 Resp 16 07/15/23 12:00 BP 111/73 07/15/23 12:00 Pulse Ox 97 07/15/23 12:00 FiO2 Intake & Output 07/14/23 07/15/23 07/15/23 18:59 06:59 18:59 Intake Total 1068 774 Output Total 200 Balance 1068 -200 774 Weight 99.79 kg Intake: Intake, IV Titration 300 Amount Sodium Chloride 0.9% 1, 300 000 ml @ 75 mls/hr IV . [id number] [facility] Rx#:[id number] Oral 1068 474 Output: Urine 200 Other: Voiding Method Toilet Toilet Toilet # Voids 3 2 - Labs CBC & Chem 7: 07/12/23 22:33 07/15/23 07:44
[2023-07-15] MEDS: SODIUM CHLORIDE 0.9% 1,000 ML in EMPTY BAG 1 BAG IV SCH (21:24)
[2023-07-16] MEDS ORDERED: LIDOCAINE 1% INJ 10MG/ML (20 ML MDV) ONE ×2 (07:15→11:26)
[2023-07-16] MEDS ORDERED: fentaNYL (PF) 50 MCG/ML 2 ML AMP ONE ×2 (07:15→12:03)
[2023-07-16] MEDS ORDERED: HEPARIN SODIUM 1,000 UN/ML (10ML VL) ONE ×2 (07:16→12:22)
[2023-07-16] MEDS ORDERED: VERAPAMIL 2.5 MG/ML 2 ML AMP ONE ×2 (07:16→11:26)
[2023-07-16] MEDS: IV FLUID CONTINUATION 1,000 ML IV ONE (07:40)
[2023-07-16] MEDS: ASPIRIN 325 MG TAB PO SCH (09:31)
[2023-07-16] MEDS: ATORVASTATIN 80 MG TAB PO SCH (09:32)
[2023-07-16] MEDS: LEVOTHYROXINE 50 MCG TAB PO ONE (09:46)
[2023-07-16] MEDS: MIDAZOLAM 2 MG/2 ML VIAL IVP ONE (11:50)
[2023-07-16] MEDS: LIDOCAINE 1% INJ 10MG/ML (20 ML MDV) SQ ONE (11:56)
[2023-07-16] MEDS: VERAPAMIL SYRINGE (5 MG/10 ML) INTRAARTER ONE (11:58)
[2023-07-16] MEDS: HEPARIN SODIUM 1,000 UN/ML (10ML VL) IVP ONE ×2 (11:59→12:24)
[2023-07-16] MEDS: fentaNYL (PF) 50 MCG/ML 2 ML AMP IVP ONE (12:04)
[2023-07-16] MEDS: IOPAMIDOL-370 100ML BTL INJ ONE ×2 (12:24→13:02)
[2023-07-16] MEDS: PHENYLEPHRINE-0.9% NACL SYG 1,000 MCG/10 ML SYRINGE IVP ONE (12:41)
[2023-07-16] MEDS: ATROPINE SULFATE 0.1 MG/ML 10ML SYRINGE IVP ONE (12:44)
[2023-07-16] MEDS ORDERED: niCARdipine 25 MG/10 ML VIAL ONE (12:53)
[2023-07-16] MEDS ORDERED: NITROGLYCERIN SL TABS 0.4 MG TAB SUBLINGUAL PRN (13:09)
[2023-07-16] MEDS ORDERED: MAG HYDROX/AL HYDROX/SIMETH 30 ML CUP PO PRN (13:09)
[2023-07-16] MEDS ORDERED: ATROPINE SULFATE 0.1 MG/ML 10ML SYRINGE IV PRN (13:09)
[2023-07-16] MEDS ORDERED: RX INFO: IV CONTRAST WAS GIVEN 1 EACH MISC MISCELLANE PRN (13:09)
[2023-07-16] MEDS ORDERED: ZOLPIDEM 5 MG TAB PO PRN (13:09)
--- NOTE | 2023-07-16 13:15 | P.PCN ---
Date of Procedure: 07/16/23 Operative Findings: PERCUTANEOUS CORONARY INTERVENTION Performing physician Matthew Singh M.D. Procedure Performed: 1. Successful stenting of the mid LAD using 3.0 x 15 Xience drug-eluting stent with an excellent angiographic results. 2. Adjunctive use of intravascular imaging 3. Ultrasound-guided access of the right radial artery and selective right common femoral artery angiogram 4. Left heart catheterization Indication: This is a 68-year-old gentleman who presented to the hospital 2 days ago with acute non-ST elevation myocardial infarction and underwent a heart catheterization which revealed critical disease involving the LCx which was stented and severe disease involving the LAD with he was brought today to undergo PCI of the LAD Approach: Right radial artery and right common femoral artery Complications: None Level of Sedation: Moderate with a sedation length of 65 minutes Procedure Discussion: After obtaining informed consent the patient was brought to the cardiac [employer]. The right radial artery was cannulated using micropuncture technique under ultrasound guidance the micropuncture wire passed easily then I placed a 6 Czech 11 cm sheath at the right radial artery with a give the patient 2 mg of verapamil intra-arterial and 5000's of heparin intravenous. Attempting engaging the left main coronary artery using a JL 3.5 and JL 3 and EBU and XB guiding catheter was unsuccessful. At that point I decided to go from the groin. Please note that the patient has no left main and the LCx and LAD has separate ostia from the aorta. I was able to access the right common femoral artery using micropuncture technique and the micropuncture wire passed easily then I pl aced a 6 Czech 11 cm sheath at the right common femoral artery. I was able to engage the LAD selectively using JL 3.5 guiding catheter. Subsequently I wired the LAD using a run-through wire and a whisper wire for ankle increasing. Intravascular ultrasound was performed and showed not very calcified artery with a diameter around 3 mm. Predilatation was performed using 2.5 mm balloon before I deployed 3.0 x 15 mm stent and subsequently postdilated the stent using initially 3.0 mm noncompliant balloon and subsequently 3.5 mm noncompliant balloon. Attempting advancing the IVUS catheter again was unsuccessful in spite of using double wire and using GuideLiner just to check the status of the stent. But final angiogram was performed and showed excellent angiographic results and the procedure was completed with no complication. By the end selective right common femoral artery angiogram was performed but before that I did left heart catheterization using 6 Czech pigtail catheter and that showed an LVEDP of 8 mmHg with no gradient across aortic valve Postprocedure Management: 1. Dual antiplatelet therapy using aspirin and Effient for at least 12-month 2. Aggressive cholesterol control 3. Risk factors modification
[2023-07-16 14:17] LABS: Glucose,Whole Blood 100 mg/dL (70-110)
--- NOTE | 2023-07-16 15:34 | P.PN ---
Subjective Progress Note Date: 07/16/23 Hospital Course: 68-year-old male with history of hypothyroidism, GERD, hypertension, dyslipidemia presented with chest pain. On arrival, vital signs were within normal limits. CBC unremarkable. BMP showed elevated BUN at 21, initial troponin negative. D-dimer slightly elevated 0.62. Troponin went up at 0.045. EKG on arrival showed sinus rhythm with first-degree AV block, and nonspecific ST-T wave changes. Chest x-ray did not show any acute process. CT chest showed mild to moderate atherosclerotic changes involving the inferior abdominal aorta, ectasia of the aortic root measuring 4.26 mm without any aneurysm or dissection, 3.4 cm segment of left anterior inferior urinary bladder wall thickened to 1.3 cm, and sigmoid colonic diverticulosis. Patient was evaluated by cardiology, started on heparin drip. He underwent left heart cath with critical disease involving the mid left circumflex with successful stent placement, also has severe disease involving LAD. Subjective: Patient seen this morning after his left heart cath. He is denying any chest pain Vitals Signs Reviewed. 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 Psych - Calm and cooperative Assessment and Plan: Active: Acute NSTEMI Coronary artery disease Sinus bradycardia, first-degree AV block -Continue telemetry monitoring -Status post left circumflex stent -Status post LAD stent on 07/05/2023 -Patient started on dopamine for bradycardia after his heart cath -Continue aspirin 81 mg and Effient 10 mg daily, atorvast for stent placement to the LAD.atin 40 mg daily -Cardiology following patient Hypertension -On losartan 50 mg daily Thickened bladder wall -Urology note reviewed, outpatient follow-up for cystoscopy, which patient declined -Patient was told that if he ever develops hematuria, he needs further workup Chronic: GERD Hypothyroidism DVT ppx: Subcu heparin Code status: Full code Anticipated discharge place: Home Anticipated discharge time: Pending clinical course Objective - Vital Signs Vital signs: Vital Signs Temp 98.7 F 07/16/23 14:30 Pulse 64 07/16/23 15:00 Resp 15 07/16/23 15:00 BP 102/66 07/16/23 15:00 Pulse Ox 97 07/16/23 15:00 FiO2 Intake & Output 07/15/23 07/16/23 07/16/23 18:59 06:59 18:59 Intake Total 1130 975 Output Total 500 Balance 1130 475 Intake: IV 975 Sodium Chloride 0.9% 1, 75 000 ml @ 75 mls/hr IV . [id number] [facility] Rx#:[id number] Intake, IV Titration 300 Amount Sodium Chloride 0.9% 1, 300 000 ml @ 75 mls/hr IV . [id number] [facility] Rx#:[id number] Oral 830 Output: Urine 500 Other: Voiding Method Toilet Toilet - Labs CBC & Chem 7: 07/12/23 22:33 07/15/23 07:44
[2023-07-16] MEDS: SODIUM CHLORIDE 0.9% 1,000 ML in EMPTY BAG 1 BAG IV SCH (18:24)
[2023-07-16] MEDS ORDERED: AMIODARONE 360 MG in DEXTROSE 5% IN WATER 200 ML IV ONE (18:46)
[2023-07-16] MEDS: polyethylene glycoL 3350 17 GM POWD.PACK PO SCH (20:41)
[2023-07-17] MEDS: MAG HYDROX/AL HYDROX/SIMETH 30 ML CUP PO PRN (00:36)
[2023-07-17] MEDS: PANTOPRAZOLE 40 MG TABLET PO STA (00:56)
[2023-07-17] MEDS ORDERED: AMIODARONE 450 MG in DEXTROSE 5% IN WATER 250 ML IV SCH (01:00)
[2023-07-17 07:09] LABS: African American GFR (CKD) >90 (>60 ml/min/1.73 sqM); Non-African American GFR(CKD) >90 (>60 ml/min/1.73 sqM)
--- NOTE | 2023-07-17 07:55 | P.PN ---
Subjective Progress Note Date: 07/17/23 (seen at approx 1045) Patient is a 65-year-old male with known hypothyroidism GERD, hypertension, and dyslipidemia who presented with complaints of chest pain. In the emergency department he underwent an extensive evaluation. On arrival his vital signs and labs were within normal limits. Initial troponin was negative. Chest x-ray showed trace left pleural effusion. CT thoracic aorta demonstrated infrarenal abdominal aortic aneurysm at 2.6 cm, ectasia of the aortic root, 3.4 cm segment of the left anterior inferior bladder which is thickened, normal appendix. Patient was admitted and cardiology was consulted. Second troponin increased to 0.015 and then became positive at 0.045. Cardiology recommended cardiac catheterization which was performed on 07/13/2023 demonstrated lesion in that left circumflex which was stented there was a plan for repeat cath for stenting of the LAD.. Echocardiogram demonstrated ejection fraction 55 to 60%. On 07/16/2023 patient underwent successful stenting of his LAD lesion. After the cath he was placed in the ICU due to bradycardia. He required 1 dose of atropine and then a dopamine gtt, which was stopped on 07/17/23. Patient seen and examined at bedside. Denies any chest pain, shortness of breath, lightheadedness, dizziness. Feeling well. present at bedside. All questions answered. Vital signs reviewed General: Nontoxic, no distress, appears at stated age Cardiovascular: S1S2 reg, no murmur Lungs: CTA bilateral, no rhonchi, no rales, no accessory muscle use Abdominal: Soft, nontender to palpation, no guarding Ext: No gross muscle atrophy, no edema b/l lower extremities, no contractures Neuro: CN II-XI grossly intact, no focal neuro deficits Psych: Alert, oriented, appropriate affect Assessment/Plan: Non-ST segment elevated myocardial infarction, acute Coronary artery disease status post PCI of the left circumflex on 07/13/2023 and LAD on 07/16/2023 Sinus bradycardia with first-degree AV block Hypertension -Aspirin 81 mg daily, Parsidol 10 mg daily, Lipitor 40 mg daily -Coreg on hold due to bradycardia -Cozaar 50 mg daily on hold due to hypotension - Given significant bradycardia will check BMP and MG, given arterial access X 2 check CBC Thickened bladder -Seen by urology likely secondary to BPH, does not want office cystoscopy at this time. He will keep his previously scheduled appointment in the fall with Dr. Corrigan Chronic: GERD Hypothyroidism Imaging: None new Data Review: Creatinine 0.75 DVT prophylaxis: Heparin Anticipated discharge date: Pending clinical course Anticipated discharge place: Pending clinical course This dictation was prepared using [employer] voice recognition software. Though every attempt is made to correct errors during dictation some may still exist. Objective - Vital Signs Vital signs: Vital Signs Temp 98.1 F 07/17/23 04:00 Pulse 59 L 07/17/23 07:00 Resp 18 07/17/23 07:00 BP 104/68 07/17/23 07:00 Pulse Ox 97 07/17/23 07:00 FiO2 Intake & Output 07/16/23 07/17/23 07/17/23 18:59 06:59 18:59 Intake Total 1400 1145 10 Output Total 500 650 Balance 900 495 10 Weight 101.196 kg Intake: IV 1200 185 10 0.9% NS KVO 110 10 Sodium Chloride 0.9% 1, 300 75 000 ml @ 75 mls/hr IV . [id number] [facility] Rx#:[id number] Oral 960 Tube Feeding 200 Output: Urine 500 650 Other: Voiding Method Urinal Urinal # Voids 2 - Labs CBC & Chem 7: 07/17/23 08:15 07/17/23 08:15
[2023-07-17] MEDS: ASPIRIN 81 MG PO SCH (08:31)
[2023-07-17 08:32] LABS: HCT 44.4 % (39.0-53.0); HGB 14.5 gm/dL (13.0-17.5); MCH 29.5 pg (25.0-35.0); MCHC 32.7 g/dL (31.0-37.0); MCV 90.4 fL (80.0-100.0); Mean Platelet Volume 8.4; Platelet Count 192 k/uL (150-450); RBC 4.91 m/uL (4.30-5.90); RDW 13.7 % (11.5-15.5)
[2023-07-17 08:44] LABS: African American GFR (CKD) >90 (>60 ml/min/1.73 sqM); Anion Gap 3 mmol/L; Blood Urea Nitrogen 15 mg/dL (9-20); Calcium 9.3 mg/dL (8.4-10.2); Carbon Dioxide 27 mmol/L (22-30); Chloride 109 mmol/L (98-107); Glucose 118 mg/dL (74-99); Non-African American GFR(CKD) 90 (>60 ml/min/1.73 sqM); Potassium 3.8 mmol/L (3.5-5.1); Sodium 139 mmol/L (137-145)
[2023-07-17] MEDS: DOPamine DRIP 800 MG in DEXTROSE/WATER 1 250ML.BAG IV SCH (09:35)
--- NOTE | 2023-07-17 11:41 | P.PN ---
Subjective Progress Note Date: 07/17/23 This is Ranulfo Werner NP, I'm dictating on behalf of Dr. Lamar's H&P and A&P. Patient was interviewed and examined. Patient is a pleasant 68-year-old male who presented to the hospital with a non- Q wave WI. Patient underwent successful stenting of the mid LAD. This morning the patient reports that he is feeling good. He is denying any chest pain, shortness of breath, heart palpitations. Patient had low heart rates as well as low blood pressures after the procedure, and has been on IV dopamine to assist with this. He has no pain at the femoral access site or right radial site and both areas are intact with no drainage. GENERAL: Well-appearing, well-nourished and in no acute distress. NECK: Supple without JVD or thyromegaly. LUNGS: Breath sounds clear to auscultation bilaterally. Respiration equal and unlabored. No wheezes, rales or rhonchi. HEART: Regular rate and rhythm without murmurs, rubs or gallops. S1 and S2 heard. EXTREMITIES: Normal range of motion, no edema. No clubbing or cyanosis. Peripheral pulses intact and strong. VITALS: Temp 98.1, pulse 66, respirations 14, blood pressure 109/66, O2 saturation 97% on room air TELEMETRY: Sinus mechanism LABS: White count 10, hemoglobin 14.5, platelets 192, sodium 139, potassium 3.8, BUN 15, creatinine 0.83 glucose 132, magnesium 2 IMPRESSION: 1. Non-Q wave myocardial infarction with stenting to the left circumflex 2. Sinus bradycardia 3. Hypotension PLAN: Discontinue dopamine at this time. Continue to monitor patient on telemetry. Further recommendations based on patient's clinical course. Objective - Vital Signs Vital signs: Vital Signs Temp 98.1 F 07/17/23 04:00 Pulse 66 07/17/23 09:00 Resp 14 07/17/23 09:00 BP 109/66 07/17/23 09:00 Pulse Ox 97 07/17/23 09:00 FiO2 Intake & Output 07/16/23 07/17/23 07/17/23 18:59 06:59 18:59 Intake Total 1400 1145 30 Output Total 500 650 300 Balance 900 495 -270 Weight 101.196 kg Intake: IV 1200 185 30 0.9% NS KVO 110 30 Sodium Chloride 0.9% 1, 300 75 000 ml @ 75 mls/hr IV . [id number] [facility] Rx#:[id number] Oral 960 Tube Feeding 200 Output: Urine 500 650 300 Other: Voiding Method Urinal Urinal Urinal # Voids 2 0 - Labs CBC & Chem 7: 07/17/23 08:15 07/17/23 08:15 Labs: Abnormal Lab Results - Last 24 Hours (Table) 07/17/23 Range/Units 08:15 Chloride 109 H (98-107) mmol/L Glucose 118 H (74-99) mg/dL
[2023-07-17] MEDS: TRIAMCINOLONE 0.1% CREAM 80 GM TUBE TOPICAL SCH (12:00)
[2023-07-17] MEDS: predniSONE 20 MG TAB PO STA (15:35)
[2023-07-17] MEDS: diphenhydrAMINE 25 MG CAP PO PRN (15:35)
[2023-07-18 04:42] LABS: African American GFR (CKD) >90 (>60 ml/min/1.73 sqM); Anion Gap 3 mmol/L; Blood Urea Nitrogen 18 mg/dL (9-20); Calcium 9.1 mg/dL (8.4-10.2); Carbon Dioxide 25 mmol/L (22-30); Chloride 110 mmol/L (98-107); Glucose 134 mg/dL (74-99); HCT 39.5 % (39.0-53.0); HGB 12.9 gm/dL (13.0-17.5); MCHC 32.7 g/dL (31.0-37.0); MCV 91.8 fL (80.0-100.0); Mean Platelet Volume 8.3; Non-African American GFR(CKD) 88 (>60 ml/min/1.73 sqM); Platelet Count 172 k/uL (150-450); Potassium 4.1 mmol/L (3.5-5.1); RBC 4.31 m/uL (4.30-5.90); RDW 13.5 % (11.5-15.5); Sodium 138 mmol/L (137-145); WBC 10.1 k/uL (3.8-10.6)
[2023-07-18] MEDS: LEVOTHYROXINE 25 MCG TAB PO SCH (06:35)
--- NOTE | 2023-07-18 10:19 | P.PN ---
Subjective Progress Note Date: 07/18/23 This is Ranulfo Werner NP, I'm dictating on behalf of Dr. Lamar's H&P and A&P. Patient was interviewed and examined. Patient is a pleasant 68-year-old male who presented to the hospital after a non-Q wave LA and underwent stenting to the left circumflex. Patient is doing well today. He was taken off dopamine yesterday and has maintained his blood pressure well. Heart rate continues to be low, however patient is on a very low-dose of carvedilol. He otherwise has no complaints. GENERAL: Well-appearing, well-nourished and in no acute distress. NECK: Supple without JVD or thyromegaly. LUNGS: Breath sounds clear to auscultation bilaterally. Respiration equal and unlabored. No wheezes, rales or rhonchi. HEART: Regular rate and rhythm without murmurs, rubs or gallops. S1 and S2 hea rd. EXTREMITIES: Normal range of motion, no edema. No clubbing or cyanosis. Peripheral pulses intact and strong. VITALS: Temp 97.7, pulse 50, respirations 12, blood pressure 128/75, O2 saturation 98% on room air TELEMETRY: Sinus mechanism LABS: No new labs since yesterday. IMPRESSION: 1: Non-Q wave myocardial infarction with stenting to the left circumflex 2. Significant LAD awaiting coronary stenting. 3. Mild sinus bradycardia PLAN: Discontinue amlodipine and losartan. Patient is stable for transfer to the cardiac floor. Further recommendations based on patient's clinical course. Objective - Vital Signs Vital signs: Vital Signs Temp 97.7 F 07/18/23 08:00 Pulse 50 L 07/18/23 10:00 Resp 12 07/18/23 10:00 BP 128/75 07/18/23 10:00 Pulse Ox 98 07/18/23 10:00 FiO2 Intake & Output 07/17/23 07/18/23 07/18/23 18:59 06:59 18:59 Intake Total 60.079 Output Total 300 0 Balance -239.921 0 Weight 100.516 kg Intake: IV 60 0.9% NS KVO 60 Intake, IV Titration 0.079 Amount DOPamine DRIP 800 mg In 0.079 Dextrose/Water 1 250ml. bag @ 2.5 MCG/KG/MIN 4. 744 mls/hr IV .Q24H [facility] Rx#:[id number] Output: Urine 300 0 Other: Voiding Method Urinal Toilet # Voids 1 1 1 - Labs CBC & Chem 7: 07/18/23 03:40 07/18/23 03:40 Labs: Abnormal Lab Results - Last 24 Hours (Table) 07/18/23 07/18/23 Range/Units 03:40 03:40 Hgb 12.9 L (13.0-17.5) gm/dL Chloride 110 H (98-107) mmol/L Glucose 134 H (74-99) mg/dL
[2023-07-18] MEDS: predniSONE 20 MG TAB PO STA (12:33)
--- NOTE | 2023-07-18 15:21 | P.PN ---
Subjective Progress Note Date: 07/18/23 (delayed charting seen at 1105) Patient is a 65-year-old male with known hypothyroidism GERD, hypertension, and dyslipidemia who presented with complaints of chest pain. In the emergency department he underwent an extensive evaluation. On arrival his vital signs and labs were within normal limits. Initial troponin was negative. Chest x-ray showed trace left pleural effusion. CT thoracic aorta demonstrated infrarenal abdominal aortic aneurysm at 2.6 cm, ectasia of the aortic root, 3.4 cm segment of the left anterior inferior bladder which is thickened, normal appendix. Patient was admitted and cardiology was consulted. Second troponin increased to 0.015 and then became positive at 0.045. Cardiology recommended cardiac catheterization which was performed on 07/13/2023 demonstrated lesion in that left circumflex which was stented there was a plan for repeat cath for stenting of the LAD.. Echocardiogram demonstrated ejection fraction 55 to 60%. On 07/16/2023 patient underwent successful stenting of his LAD lesion. After the cath he was placed in the ICU due to bradycardia. He required 1 dose of atropine and then a dopamine gtt, which was stopped on 07/17/23. Hr > 50 since th at time. Patient seen and examined at bedside with present. Denies any chest discomfort overnight or event 3 twinges in the middle of the night. No shortness of breath. No nausea or vomiting. He is still having some itching and increasing of his rash. Vital signs reviewed General: Nontoxic, no distress, appears at stated age Cardiovascular: S1S2 reg, no murmur Lungs: CTA bilateral, no rhonchi, no rales, no accessory muscle use Abdominal: Soft, nontender to palpation, no guarding Ext: No gross muscle atrophy, no edema b/l lower extremities, no contractures Neuro: CN II-XI grossly intact, no focal neuro deficits Psych: Alert, oriented, appropriate affect Assessment/Plan: Non-ST segment elevated myocardial infarction, acute Coronary artery disease status post PCI of the left circumflex on 07/13/2023 and LAD on 07/16/2023 Sinus bradycardia with first-degree AV block Hypertension -Cardiology note reviewed: Discontinue amlodipine and losartan. Transfer to 3 S. -Aspirin 81 mg daily, Parsugrel 10 mg daily, Lipitor 40 mg daily -Coreg on hold due to bradycardia Thickened bladder -Seen by urology likely secondary to BPH, does not want office cystoscopy at t his time. He will keep his previously scheduled appointment in the fall with Dr. Corrigan Allergic dermitis - appears to have started from cath prep - Prednisone 20 mg X 1 today D#2 - conitnue with triamcinolone cream 3 times daily and Benadryl 25 mg p.o. 3 times daily for itching/allergy symptoms Chronic: GERD Hypothyroidism Imaging: None new Data Review: None new DVT prophylaxis: Heparin Anticipated discharge date: in AM Anticipated discharge place: Home This dictation was prepared using [employer] voice recognition software. Though every attempt is made to correct errors during dictation some may still exist. Objective - Vital Signs Vital signs: Vital Signs Temp 98.5 F 07/18/23 14:05 Pulse 58 L 07/18/23 14:05 Resp 14 07/18/23 14:05 BP 118/62 07/18/23 14:05 Pulse Ox 97 07/18/23 14:05 FiO2 Intake & Output 07/17/23 07/18/23 07/18/23 18:59 06:59 18:59 Intake Total 60.079 Output Total 300 0 Balance -239.921 0 Weight 100.516 kg Intake: IV 60 0.9% NS KVO 60 Intake, IV Titration 0.079 Amount DOPamine DRIP 800 mg In 0.079 Dextrose/Water 1 250ml. bag @ 2.5 MCG/KG/MIN 4. 744 mls/hr IV .Q24H SUNIL Rx#:[id number] Output: Urine 300 0 Other: Voiding Method Urinal Toilet Toilet # Voids 1 1 1 - Labs CBC & Chem 7: 07/18/23 03:40 07/18/23 03:40 Labs: Abnormal Lab Results - Last 24 Hours (Table) 07/18/23 07/18/23 Range/Units 03:40 03:40 Hgb 12.9 L (13.0-17.5) gm/dL Chloride 110 H (98-107) mmol/L Glucose 134 H (74-99) mg/dL
[2023-07-19 01:48] VITALS: RESP 18
[2023-07-19 06:58] VITALS: BP 118/73; PULSE 52; TEMP 97.5
--- NOTE | 2023-07-19 07:06 | P.PN ---
Subjective Progress Note Date: 07/19/23 Principal diagnosis: ACS The patient is a pleasant 68-year-old gentleman with CAD and prior stenting of the LAD and LCx as well as hypertension and dyslipidemia who was admitted to the hospital with chest discomfort. He underwent a heart catheterization and PCI of the LCx and subsequently the LAD. He was not bradycardic and for that reason he was admitted to the intensive care unit and started on dopamine and subsequently dopamine was stopped. July 19, 2023 The patient was seen and evaluated this morning. He is asymptomatic. The pressure remains marginal as well as the heart rate. With that being said I am going to stop the carvedilol..Beside that continue dual antiplatelet therapy along with a statin. From the cardiovascular standpoint of view, the patient can be discharged home today. The physical examination is remarkable for regular rhythm with clear breathing sounds bilaterally and no carotid bruit and no edema was noted. Assessment Acute non-ST elevation myocardial infarction Status post PCI of the LCx and LAD Hypertension Dyslipidemia Bradycardia Plan DC carvedilol in the light of bradycardia and marginally low blood pressure Continue dual antiplatelet therapy along with high intensity statin The patient can be discharge home Objective - Vital Signs Vital signs: Vital Signs Temp 97.5 F L 07/19/23 04:00 Pulse 52 L 07/19/23 04:00 Resp 18 07/19/23 04:00 BP 118/73 07/19/23 04:00 Pulse Ox 99 07/19/23 04:00 FiO2 Intake & Output 07/18/23 07/19/23 07/19/23 18:59 06:59 18:59 Intake Total 240 Balance 240 Intake: Oral 240 Other: Voiding Method Toilet Toilet # Voids 1 4 - Labs CBC & Chem 7: 07/18/23 03:40 07/18/23 03:40
--- NOTE | 2023-07-19 11:24 | P.DS ---
Providers Date of admission: 07/14/23 08:39 Expected date of discharge: 07/19/23 Attending physician: Zohreh Marin MD Consults: 07/13/23 06:45 Consult Physician Routine Consulting Provider: Fabian Garcia Consult Reason/Comments: bladder wall thickening Do you want consulting provider notified?: Yes 07/13/23 09:05 Consult Physician Urgent Consulting Provider: [facility] Consult Reason/Comments: Chest pain ; elevated troponin Do you want consulting provider notified?: Yes 07/13/23 15:03 Consult Physician Routine Consulting Provider: [facility] Consult Reason/Comments: Post Interventional patient Do you want consulting provider notified?: Already Contacted 07/16/23 13:10 Consult Physician Routine Consulting Provider: [facility] Consult Reason/Comments: Post Interventional patient Do you want consulting provider notified?: Already Contacted Primary care physician: Pillo Lea [facility] Course: Discharge Diagnosis: Acute NSTEMI CAD status post PCI to left circumflex and LAD Sinus bradycardia with first-degree AV block Hypertension Thickened bladder Allergic dermatitis GERD Hypothyroidism Hospital Course: Patient is a 65-year-old male with known hypothyroidism GERD, hypertension, and dyslipidemia who presented with complaints of chest pain. On arrival his vital signs and labs were within normal limits. Initial troponin was negative. Chest x-ray showed trace left pleural effusion. CT thoracic aorta demonstrated infrarenal abdominal aortic aneurysm at 2.6 cm, ectasia of the aortic root, 3.4 cm segment of the left anterior inferior bladder which is thickened, normal appendix. Patient was admitted and cardiology was consulted. Second troponin increased to 0.015 and then became positive at 0.045. Cardiology recommended cardiac catheterization which was performed on 07/13/2023 demonstrated lesion in that left circumflex which was stented there was a plan for repeat cath for stenting of the LAD.. Echocardiogram demonstrated ejection fraction 55 to 60%. On 07/16/2023 patient underwent successful stenting of his LAD lesion. After the cath he was placed in the ICU due to bradycardia. He required 1 dose of atropine and then a dopamine gtt, which was stopped on 07/17/23. Hr > 50 since that time. Denies any chest pain at the time of discharge. Patient being discharged on dual antiplatelet therapy as well as statin. Follow-up with cardiology outpatient. Patient seen and examined at bedside. Vital signs reviewed and stable. General: Nontoxic, no distress, appears at stated age Derm: Warm, dry Head: Atraumatic, normocephalic, symmetric Eyes: EOMI, no lid lag, anicteric sclera Mouth: No lip lesion, mucus membranes moist Cardiovascular: S1S2 reg, no murmur Lungs: CTA bilateral, no rhonchi, no rales, no accessory muscle use Abdominal: Soft, nontender to palpation, no guarding, no appreciable organomegaly Ext: No gross muscle atrophy, no edema, no contractures Neuro: CN II-XI grossly intact, no focal neuro deficits Psych: Alert, oriented, appropriate affect A total of 33 minutes of time were spent preparing this complex discharge summary. Patient was discharged on 08/15/2023 at 947. Patient Condition at Discharge: Good Plan - Discharge Summary Discharge Rx Participant: Yes New Discharge Prescriptions: New Atorvastatin [Lipitor] 40 mg PO DAILY #90 tab Aspirin 81 mg PO DAILY #90 tab Prasugrel [Effient] 10 mg PO DAILY #90 tab Continue Levothyroxine Sodium [Synthroid] 50 mcg PO MOTUWETHFRSA Levothyroxine Sodium [Synthroid] 25 mcg PO JOHNSON Multivitamins, Thera [Multivitamin (formulary)] 1 tab PO DAILY Psyllium Husk [Metamucil] 1.6 gm PO HS Fluticasone Nasal [place] [Flonase Nasal [place]] 2 spray EA NOSTRIL HS Albuterol Sulfate [Albuterol Sulfate Hfa] 2 puff PO RT-Q4H PRN PRN Reason: Shortness Of Breath Pantoprazole Sodium [Protonix] 40 mg PO DAILY Discontinued Atorvastatin [Lipitor] 20 mg PO DAILY Chlorthalidone 25 mg PO DAILY amLODIPine BESYLATE 5 mg PO DAILY Discharge Medication List Multivitamins, Thera [Multivitamin (formulary)] 1 tab PO DAILY 12/31/20 [History] Psyllium Husk [Metamucil] 1.6 gm PO HS 12/31/20 [History] Albuterol Sulfate [Albuterol Sulfate Hfa] 2 puff PO RT-Q4H PRN 07/13/23 [History] Fluticasone Nasal [place] [Flonase Nasal [place]] 2 spray EA NOSTRIL HS 07/13/23 [History] Levothyroxine Sodium [Synthroid] 25 mcg PO JOHNSON 07/13/23 [History] Levothyroxine Sodium [Synthroid] 50 mcg PO MOTUWETHFRSA 07/13/23 [History] Pantoprazole Sodium [Protonix] 40 mg PO DAILY 07/13/23 [History] Aspirin 81 mg PO DAILY #90 tab 07/19/23 [Rx] Atorvastatin [Lipitor] 40 mg PO DAILY #90 tab 07/19/23 [Rx] Prasugrel [Effient] 10 mg PO DAILY #90 tab 07/19/23 [Rx] Follow up Appointment(s)/Referral(s): Matthew Singh MD [STAFF PHYSICIAN] - 1 Week Pillo Lea DO [Primary Care Provider] - 1-2 days Patient Instructions/Handouts: *[facility] - After Heart Catheterization - Clinical Trial Manager Instructions, Heart Attack (DC) Activity/Diet/Wound Care/Special Instructions: Please see your PCP and cardiology. Discharge Disposition: HOME SELF-CARE
== END 2023-07-19 11:31 | disposition home or self-care (01) | DRG 322 ==
LOC: EC 22:22 → 6NMEDSUR 07-13 01:38 → 3SCARD 07-13 10:32 → OBSVTOIN 07-14 08:39 → 2SICU 07-16 13:24
PROVIDERS: ADMIT Internal Medicine; ATTEND Internal Medicine
PROC: 027034Z Dilation of Coronary Artery, One Artery with Drug-eluting Intraluminal Device, Percutaneous Approach (ICD-10-PCS; principal; 2023-07-13 17:40)
PROC: B2111ZZ Fluoroscopy of Multiple Coronary Arteries using Low Osmolar Contrast (ICD-10-PCS; principal; 2023-07-13 17:40)
PROC: 4A023N7 Measurement of Cardiac Sampling and Pressure, Left Heart, Percutaneous Approach (ICD-10-PCS; principal; 2023-07-13 17:40)
PROC: 027034Z Dilation of Coronary Artery, One Artery with Drug-eluting Intraluminal Device, Percutaneous Approach (ICD-10-PCS; 2023-07-16 09:30)
PROC: 4A023N7 Measurement of Cardiac Sampling and Pressure, Left Heart, Percutaneous Approach (ICD-10-PCS; 2023-07-16 09:30)
PROC: B240ZZ3 Ultrasonography of Single Coronary Artery, Intravascular (ICD-10-PCS; 2023-07-16 09:30)
DX: I21.4 Non-ST elevation (NSTEMI) myocardial infarction (principal); I95.9 Hypotension, unspecified; E03.9 Hypothyroidism, unspecified; I71.43 Infrarenal abdominal aortic aneurysm, without rupture; I10 Essential (primary) hypertension; I25.10 Atherosclerotic heart disease of native coronary artery without angina pectoris; I25.84 Coronary atherosclerosis due to calcified coronary lesion; I44.0 Atrioventricular block, first degree; R00.1 Bradycardia, unspecified; E78.00 Pure hypercholesterolemia, unspecified; N40.0 Benign prostatic hyperplasia without lower urinary tract symptoms; K57.30 Diverticulosis of large intestine without perforation or abscess without bleeding; K21.9 Gastro-esophageal reflux disease without esophagitis; L23.9 Allergic contact dermatitis, unspecified cause; Z79.890 Hormone replacement therapy; Z79.899 Other long term (current) drug therapy; Z87.891 Personal history of nicotine dependence; Z88.5 Allergy status to narcotic agent
CPT/HCPCS: 36415; 71046; 71275; 74174; 76937; 80048; 80053; 80061; 82565; 83735; 84484; 85025; 85027; 85379; 85610; 85730; 92978; 93005; 93306; 93454; 93458; 94760; 96365; 96366; 96372; 99285

== ENCOUNTER → 2024-04-10 | Outpatient (CLI) | payer MEDICARE ==
--- NOTE | 2024-04-10 18:50 | CTL ---
EXAMINATION TYPE: CT Low Dose Lung DATE OF EXAM ORDERED: 04/10/2024 COMPARISON: CT Low Dose Lung 04/07/2023, 04/06/2022, 04/22/2020, 04/15/2019, 04/14/2018, 02/17/2017, CT chest 03/19/2021 CLINICAL INDICATION: Male, 69 years old with history of R91.1 lung nodule; PHH, lung nodule, Lung can cer screening, History of Smoking/tobacco use. TECHNIQUE: Low dose computed tomography scan was performed through the chest at 1 mm thick sections a nd reconstructed images in multiple planes at 1 mm and [address] DLP: 113.[address] CTDI: 2.6 mGy Automated exposure control for dose reduction was used. CT DIAGNOSTIC QUALITY: Satisfactory FINDINGS: Nodules: Some scattered micronodules are redemonstrated. No new or enlarging greater than 5 mm pulmonary nodul es. LUNGS: COPD: Severity: None Fibrosis: Severity: None Lymph nodes: None Other findings: None RIGHT PLEURAL SPACE: Effusion: None Calcification: None Thickening: None Pneumothorax: None LEFT PLEURAL SPACE: Effusion: None Calcification: None Thickening: None Pneumothorax: None HEART: Heart Size: Normal Coronary Calcification: Moderate Pericardial Effusion: None OTHER FINDINGS: Upper abdomen: Gallbladder surgically absent. Bony thorax: None Supraclavicular region: None Other: Ectasia of the aortic root measuring up to 3.9 cm. IMPRESSION: No new or enlarging greater than 5 mm pulmonary nodules. No significant change from prior CTs. CT LUNG RAD AND CT CHEST RECOMMENDATION: Lung-Rad 2 Benign Appearance or Behavior: Continue annual sc reening with LDCT in 12 months. S Modifier (other clinically significant findings): None [facility], , 04/10/2024 6:47 PM
== END | disposition home or self-care (01) ==
LOC: RADCTMAIN 11:26
PROVIDERS: ATTEND Internal Medicine
DX: Z12.2 Encounter for screening for malignant neoplasm of respiratory organs (principal); R91.1 Solitary pulmonary nodule; Z87.891 Personal history of nicotine dependence
CPT/HCPCS: 71271